=== PATIENT | female | born 1935 | race Caucasian/White ===

== ENCOUNTER 2022-02-07 14:15 | Emergency (ER) | payer MEDICARE, SELFPAY ==
--- NOTE | ~2022-02-07 | XR_ITS ---
EXAMINATION: XR CHEST CLINICAL INFORMATION: Chest pain status post fall. COMPARISON: None TECHNIQUE: Frontal view of the chest was obtained. FINDINGS: The lungs are clear. The heart and mediastinal structures are unremarkable. Mild degenerative changes are seen in the shoulders bilaterally. No overt acute osseous abnormality. XR/XR chest 1V IMPRESSION: No acute cardiopulmonary process. No overt acute traumatic injury.
--- NOTE | ~2022-02-07 | CT_ITS ---
EXAMINATION: CT HEAD W/O IV CONTRAST CT CERVICAL SPINE W/O IV CONTRAST CLINICAL INFORMATION: History of fall, head trauma, patient on Eliquis. COMPARISON: None TECHNIQUE: Head - Contiguous axial imaging of the head was performed from the skull base to the vertex without the administration of intravenous contrast, and axial images are reconstructed at 2 mm and 5 mm slice thickness. Cervical spine - A volumetric, helical CT acquisition of the cervical spine was obtained without contrast; in addition to the standard set of axial images, multiplanar reformatted images were provided in the coronal and sagittal imaging planes. This CT examination was performed using dose optimization techniques as appropriate, variously including the following: *Automated exposure control *Adjustment of mA and/or kV according to patient size (this includes techniques or standardized protocols for targeted exams where dose is matched to indication/reason for exam; i.e. extremities or head) *Use of iterative reconstruction technique DLP: 958 mGy-cm (total) FINDINGS: HEAD: There is atherosclerotic calcification of proximal intradural segments of vertebral arteries and cavernous carotid arteries. Patchy hypoattenuation within supratentorial white matter is compatible with sequela of chronic microangiopathy. The garcia-white matter differentiation is maintained. No evidence of an acute major vascular territory infarction. No intracranial hemorrhage, extra-axial fluid collection, focal mass effect or midline shift. Moderate parenchymal volume loss with commensurate prominence of ventricles and sulci. No acute findings within the posterior fossa. The calvarium is intact. The visualized paranasal sinuses and mastoid air cells are well aerated. The orbits and temporomandibular joints are unremarkable. A scalp hematoma is present in the parietal-occipital region. This hematoma measures up to at least 1 cm in thickness, approximately 7.5 cm transverse and approximately 8 cm in length. CERVICAL SPINE: The cervical spine has normal curvature. The craniocervical junction is normal. The occipital condyles, dens and atlantodental articulation are intact. Degenerative osseous spurring at the atlantodental articulation. There is calcium deposition (likely calcium pyrophosphate dihydrate crystal deposition) along the transverse ligament posterior to the dens. The vertebral body heights and alignment are maintained. No fractures in the anterior or posterior elements. No prevertebral soft tissue swelling. Multilevel facet osteoarthritis. Also, multilevel vertebral osteophyte formation and disc space narrowing of the degenerated spine. There is moderate loss of disc space and uncovertebral joint hypertrophy at C4-C5, C5-C6 and C6-C7. Mild disc degenerative change at C7-T1. Small posterior disc osteophyte complexes cause mild central canal stenosis at C4-C5 and C5-C6. Facet joint hypertrophy causes nnsh-wx-flixzkgr left-sided neural foraminal stenosis at C3-C4. At C4-C5, there is moderate right and mild left neural foraminal stenosis. Mild bilateral neural foraminal stenosis at C5-C6. At C6-C7, there is mild right and moderate left foraminal stenosis. There is a C3 bone island. No suspicious osseous lesions. No hematoma within the neck. Mild centrilobular and paraseptal emphysema at the visualized apices. No pneumothorax. Thyroid gland is unremarkable. CT/CT cervical spine wo IV con IMPRESSION: * Acute parietal-occipital scalp hematoma without calvarial fracture. * No intracranial hemorrhage or other acute intracranial pathology. * No fracture or malalignment in the degenerated cervical spine. * Pulmonary emphysema.
[2022-02-07 14:33] VITALS: BP 137/74; BP 169/84; PULSE 78; PULSE 81; RESP 20; TEMP 36.8; O2SAT 100; O2SAT 98; BMI 24.5
--- NOTE | 2022-02-07 14:45 | ED.FALL ---
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 Patient states she was caring multiple things up the stairs when tripped and fell, admits to hitting head, denies LOC. denies symptoms prior to fall including headache, lightheadedness / dizziness, CP/ SOB. Reports mom to back of head. Denies headache, neck pain, back pain, urinary incontinence/ retention, vision change/loss, fever <ISA Baker Last Filed: 02/07/22 18:28> MD complaint: fall <ISA Baker Last Filed: 02/07/22 18:28> Related Data Home Medications: Home Medications Medication Instructions Recorded Confirmed amlodipine 5 mg tablet 2 tab PO DAILY 02/07/22 02/07/22 apixaban 2.5 mg tablet (Eliquis) 1 tab PO BID 02/07/22 02/07/22 hydrochlorothiazide 25 mg tablet 1 tab PO DAILY 02/07/22 02/07/22 multivitamin 1 tab PO DAILY 02/07/22 02/07/22 rosuvastatin 40 mg tablet 1 tab PO BEDTIME 02/07/22 02/07/22 <ISA Baker Last Filed: 02/07/22 18:28> Allergies/Adverse Reactions: Allergies Allergy/AdvReac Type Severity Reaction Status Date / Time Tetracyclines Allergy Difficulty Verified 02/07/22 14:58 Breathing <ISA Baker Last Filed: 02/07/22 18:28> Review of Systems Review of Systems: Constitutional: No Fever, No Chills, No Fatigue, No Malaise ENT/Mouth: No Ear Pain, No Nasal Congestion, No sore throat, No Rhinorrhea, No Swallowing Difficulty Eyes: No Eye Pain, No Swelling, No Redness, No Vision Changes Cardiovascular: No Chest Pain, No SOB, No Edema, No Palpitations Respiratory: No Cough, No Sputum, No Dyspnea Gastrointestinal: No Nausea, No Vomiting, No Diarrhea, No Constipation, No Abdominal pain Genitourinary: No Dysuria, No Urinary Frequency, No Hematuria, No Urinary Incontinence/retention, No Urgency, No Flank Pain Musculoskeletal: No joint pain, No Myalgias, No Joint Swelling Skin: No Skin Lesions, No rash Neuro: No Weakness, No Numbness, No Paresthesias, No Loss of Consciousness, No Dizziness, + Head injury <ISA Baker - Last Filed: 02/07/22 18:28> Yes all other systems are reviewed and are negative <ISA Baker - Last Filed: 02/07/22 18:28> Constitutional: Constitutional: Reports as per HPI <ISA Baker - Last Filed: 02/07/22 18:28> Neurologic: Denies Abnormal speech present <ISA Baker - Last Filed: 02/07/22 18:28> [facility] Past Medical History Attestation statement: The following information was validated with the patient. <ISA Baker - Last Filed: 02/07/22 18:28> Social History Social History: Social History Alcohol intake: former Smoked in Last 30 Days: Yes Advance Directives: Yes Advance Directives on File: Yes Advance Directives Date on File: 02/07/22 <ISA Baker - Last Filed: 02/07/22 18:28> Physical Exam Vital Signs: Vital Signs: Last Vital Signs Temp 98.1 F 02/07/22 22:29 Pulse 70 02/07/22 22:29 Resp 19 02/07/22 22:29 BP 136/52 L 02/07/22 22:29 Pulse Ox 93 02/07/22 22:29 O2 Del Method 02/07/22 22:29 BMI result Body Mass Index 24.5 <ISA Baker - Last Filed: 02/07/22 18:28> Vital Signs: Last Vital Signs Temp 98.1 F 02/07/22 22:29 Pulse 70 02/07/22 22:29 Resp 19 02/07/22 22:29 BP 136/52 L 02/07/22 22:29 Pulse Ox 93 02/07/22 22:29 O2 Del Method 02/07/22 22:29 BMI result Body Mass Index 24.5 <Jeimy Pedro PA - Last Filed: 02/07/22 23:26> Const: General: cooperative, healthy appearing and no acute distress <ISA Baker - Last Filed: 02/07/22 18:28> Orientation/consciousness: patient oriented x3 <ISA Baker - Last Filed: 02/07/22 18:28> Limitations: no limitations <ISA Baker - Last Filed: 02/07/22 18:28> HEENT: Head: Yes normal to inspection, No Sanchez's sign, Yes hematoma ( to posterior scalp) and No raccoon eyes <ISA Baker - Last Filed: 02/07/22 18:28> Ears: hearing grossly normal bilaterally <ISA Baker - Last Filed: 02/07/22 18:28> General nose exam: Normal external nose present <ISA Baker - Last Filed: 02/07/22 18:28> Face and sinus: Yes normal facial exam <ISA Baker - Last Filed: 02/07/22 18:28> Throat: Yes posterior oropharynx normal, Yes tonsils normal and Yes uvula midline <ISA Baker - Last Filed: 02/07/22 18:28> Eyes: General: appearance normal, both eyes and all related structures <ISA Baker - Last Filed: 02/07/22 18:28> Pupils: Equal, round and reactive pupils present <ISA Baker - Last Filed: 02/07/22 18:28> EOM: EOMs intact bilaterally <ISA Baker - Last Filed: 02/07/22 18:28> Neck: Other: no midline cervical spinous tenderness <Leatha Poulmaliat PA - Last Filed: 02/07/22 18:28> Neck: Yes normal visual inspection and Yes no meningeal signs <Leatha Poulmaliat, PA - Last Filed: 02/07/22 18:28> Resp: Effort & Inspection: normal respiratory effort and no respiratory distress <Leatha Poulmaliat PA - Last Filed: 02/07/22 18:28> Auscultation: clear to auscultation bilaterally, no crackles, no rales, no rhonchi and no wheezes <Leatha Poulmaliat, PA - Last Filed: 02/07/22 18:28> Cardio: Rate: regular rate <Leatha Poulmaliat, PA - Last Filed: 02/07/22 18:28> Heart sounds: S1 normal heart sound present and S2 normal heart sound present <Leatha Poulmaliat, PA - Last Filed: 02/07/22 18:28> GI: Inspection: Yes normal to inspection <Leatha Poulmaliat, PA - Last Filed: 02/07/22 18:28> Palpation (GI): Soft to palpation, nontender, no guarding and not rigid <Leatha Poulisabel, PA - Last Filed: 02/07/22 18:28> : General: Yes no CVA tenderness <Leatha Poulmaliat, PA - Last Filed: 02/07/22 18:28> Back/Spine/Pelvis: Other: No midline thoracic/lumbar spinous tenderness/step-off or deformity <Leatha Poulmaliat, PA - Last Filed: 02/07/22 18:28> Back: no CVA tenderness <Leatha Pouliot, PA - Last Filed: 02/07/22 18:28> Skin: Rashes: no rashes <Leatha Poulmaliat, PA - Last Filed: 02/07/22 18:28> Wounds: no wounds <Leatha Poulmaliat, PA - Last Filed: 02/07/22 18:28> Neuro: General: patient oriented x3, tone normal, moves all extremities, no meningeal signs, no focal motor deficits and CN's II-XI intact bilaterally <Leatha Poulmaliat PA - Last Filed: 02/07/22 18:28> Cranial nerves: Yes CN's II-XII intact bilaterally and Yes Equal, round and reactive pupils present <ISA Baker - Last Filed: 02/07/22 18:28> Cognition (Neuro): normal cognition <ISA Baker - Last Filed: 02/07/22 18:28> Speech: No Abnormal speech present <ISA Baker - Last Filed: 02/07/22 18:28> Gait exam (Neuro): Normal gait present <ISA Baker - Last Filed: 02/07/22 18:28> Motor exam (neuro): 5/5 motor strength present throughout and no tremor noted <ISA Baker - Last Filed: 02/07/22 18:28> Coordination: udhenb-oc-ghsy test normal <ISA Baker - Last Filed: 02/07/22 18:28> Romberg Test: Negative <ISA Baker - Last Filed: 02/07/22 18:28> Extrem: General: Yes normal to inspection and Yes no pedal edema <ISA Baker - Last Filed: 02/07/22 18:28> Course Course Course Narrative: -1600-- Noted leukocytosis of 21.6 > denies recent steroid use. H&H hemoconcentrated, BUN elevated to 24 > likely from dehydration > will obtain lactic and blood cultures. No evidence of infection at this time - AST mildly elevated XR chest 1V IMPRESSION: No acute cardiopulmonary process. No overt acute traumatic injury. CT head/brain wo IV con/CT cervical spine wo IV con IMPRESSION: *? Acute parietal-occipital scalp hematoma without calvarial fracture. *? No intracranial hemorrhage or other acute intracranial pathology. *? No fracture or malalignment in the degenerated cervical spine. *? Pulmonary emphysema. ? Discussed potential admission with patient however she is not agreeable at this time. - UA with RBCs and blood, not infected -1757-- lactic acid 3.4 > empiric IV Zosyn given. > Plan to admit for further management <ISA Baker - Last Filed: 02/07/22 18:28> Reevaluation(s) Reevaluation #1: Patient initially was going to be admitted to the hospitalist for fall with leukocytosis however leukocytosis likely secondary to trauma/reactive. CBC was repeated which showed a improved white count to 14.9, lactic normalize, unable to identify source of infection. Patient's troponin did meet delta criteria patient without chest pain or shortness of breath, does not want to stay for observation, ekg non-ischemic however, I explained to her risks versus benefits, she verbalizes understanding. Hospitalist also discussed this with patient she verbalizes understanding. Admission for observation was offered to the patient and recommended however patient refused patient would like to go home. Hospitalist also evaluated patient, who states no reason for inpatient admission however she could stay overnight for observation if she wanted to however patient is adamantly refusing. At this time patient will be discharged home. Advised to return with new or worsening symptoms, educated on worrisome signs and symptoms and when to return. At this time I feel comfortable discharge <ISA Kapoor - Last Filed: 02/07/22 23:26> Time: 23:20 <ISA Kapoor - Last Filed: 02/07/22 23:26> Medications Administered Discontinued Medications Generic Name Dose Route Start Last Admin Trade Name Freq PRN Reason Stop Dose Admin Sodium Chloride 1,000 mls @ 999 mls/hr 02/07/22 16:00 02/07/22 19:09 Ns IV 02/07/22 17:00 Infused .Q1H1M RONALD Infusion Piperacillin Sod/Tazobactam 100 mls @ 200 mls/hr 02/07/22 18:03 02/07/22 19:40 Sod 4.5 gm/ Sodium Chloride IV 02/07/22 18:32 Infused ONCE ONE Infusion Lactated Ringer's 500 mls @ 999 mls/hr 02/07/22 18:15 02/07/22 20:50 Lr IV 02/07/22 18:45 Infused .Q31M RONALD Infusion Nicotine 14 mg 02/07/22 18:03 02/07/22 19:08 Nicotine 14 Mg Patch.Td24 TRANSDERMA 02/07/22 18:04 14 mg ONCE ONE Administration <ISA Baker - Last Filed: 02/07/22 18:28> Medications Administered Discontinued Medications Generic Name Dose Route Start Last Admin Trade Name Freq PRN Reason Stop Dose Admin Sodium Chloride 1,000 mls @ 999 mls/hr 02/07/22 16:00 02/07/22 19:09 Ns IV 02/07/22 17:00 Infused .Q1H1M RONALD Infusion Piperacillin Sod/Tazobactam 100 mls @ 200 mls/hr 02/07/22 18:03 02/07/22 19:40 Sod 4.5 gm/ Sodium Chloride IV 02/07/22 18:32 Infused ONCE ONE Infusion Lactated Ringer's 500 mls @ 999 mls/hr 02/07/22 18:15 02/07/22 20:50 Lr IV 02/07/22 18:45 Infused .Q31M RONALD Infusion Nicotine 14 mg 02/07/22 18:03 02/07/22 19:08 Nicotine 14 Mg Patch.Td24 TRANSDERMA 02/07/22 18:04 14 mg ONCE ONE Administration <ISA Kapoor - Last Filed: 02/07/22 23:26> Medical Decision Making Medical Decision Making MDM Narrative: 86-year-old female with a past medical history of AFib on Eliquis, HTN, HLD, diabetes, cigarette smoker, presenting to ED via EMS s/p mechanical trip and fall at home PLUG SH[employer] HAND. on exam vital signs stable, NAD, nontoxic appearing, hematoma noted to posterior scalp, no midline spinous tenderness, no red flag symptoms or focal neuro deficits. Concern for ICH vs fracture. Lora bile/infectious etiologies. Low suspicion for ACS/PE plan: EKG, head/ C-spine CT, CXR, labs, UA, orthostatics, re-evaluate <ISA Baker - Last Filed: 02/07/22 18:28> Differential Diagnoses: Differential diagnosis (as above) <ISA Baker - Last Filed: 02/07/22 18:28> Lab Attestation: I reviewed the patient's lab results. <ISA Baker - Last Filed: 02/07/22 18:28> Critical Care Time Critical Care Time Critical Care Time: No <ISA Kapoor Last Filed: 02/07/22 23:26> Discharge Plan Discharge Clinical Impression: Dehydration, Leukocytosis, Fall, Head injury, Elevated troponin <ISA Baker - Last Filed: 02/07/22 18:28> Patient Disposition: Home, Self-Care <ISA Baker - Last Filed: 02/07/22 18:28> Additional Instructions: Take your medications as prescribed. If you were prescribed antibiotics today, it is important that you take your medication to their entirety, do not skip any doses, do not finish them early. Follow-up with your primary care provider this week. Return to the emergency department with new or worsening symptoms. Such as fevers, chills, chest pain, shortness of breath, nausea, vomiting, dizziness, headache, vision changes, lethargy In case of emergency call 911 Your cardiac enzyme troponin was noted to be elevated, he remained aware of this while in the department you did not want to stay for observation. Please follow-up with your PCP within the next day or 2. Follow-up with cardiology. If you experience chest pain or shortness of breath you must return immediately. <ISA Baker - Last Filed: 02/07/22 18:28> Prescriptions: No Action multivitamin Tablet 1 tab PO DAILY amlodipine 5 mg tablet 2 tab PO DAILY hydrochlorothiazide 25 mg tablet 1 tab PO DAILY rosuvastatin 40 mg tablet 1 tab PO BEDTIME Eliquis 2.5 mg tablet 1 tab PO BID <ISA Baker - Last Filed: 02/07/22 18:28> Referrals: Miri Aldana MD [Primary Care Provider] - 2 days [facility] [Provider Group] - 1 day <ISA Baker - Last Filed: 02/07/22 18:28>
--- NOTE | 2022-02-07 15:00 | ECG_ITS ---
Test Reason : FALL Blood Pressure : / mmHG Vent. Rate : 072 BPM Atrial Rate : 000 BPM P-R Int : 000 ms QRS Dur : 088 ms QT Int : 402 ms P-R-T Axes : 000 061 -28 degrees QTc Int : 440 ms Artifact in tracing Atrial fibrillation Nonspecific ST and T wave abnormality Abnormal ECG No previous ECGs available Referred By: Leatha Pires Electronically Signed By:JAVI BUSTAMANTE
[2022-02-07 15:25] LABS: Basophils Absolute Auto 0.1 X10*3/uL (0.0-0.2); Basophils Percent Auto 0.5 % (0-2); Eosinophils Percent Auto 0.1 % (0-4); Hematocrit 50.1 % (37.0-47.0); Hemoglobin 17.1 g/dl (12.0-16.0); Imm Gran Abs Auto 0.14 X10*3/uL (0.00-0.03); Imm Gran Pct Auto 0.6 % (0.0-0.4); Lymphocytes Absolute Auto 1.6 X10*3/uL (1.2-4.9); Lymphocytes Percent Auto 7.4 % (20-40); MANUAL DIFF FLAG NO; Mean Corpuscular HGB Conc 34.1 g/dl (31.0-35.0); Mean Corpuscular Volume 93.8 fL (80.0-98.0); Mean Platelet Volume 10.5 fL (9.4-12.3); Monocytes Absolute Auto 1.2 X10*3/uL (0.1-1.2); Monocytes Percent Auto 5.5 % (2-11); Neutrophils Absolute Auto 18.5 x10*3/uL (2.0-8.3); Neutrophils Percent Auto 85.9 % (45-73); Platelet Count 354 X10*3/uL (160-400); Red Blood Count 5.34 X10*6/uL (4.20-5.50); White Blood Count 21.6 X10*3/uL (4.8-10.8)
--- OUTSIDE RECORDS SUMMARY | 2022-02-07 15:25 | XMS_ITS | Continuity of Care Document ---
:1935 Author Organization [facility] Address [address] [place] [address]- Care Team Providers Name Role Phone Miri Aldana MD Primary Care Physician Encounter [facility] Date(s): 08/20/20 - 10/11/20 [facility] [address] [place] [id number]- Attending Physician: David Odom MD Admitting Physician: David Odom MD Referring Physician: Miri Aldana MD Allergies, Adverse Reactions, Alerts Substance Reaction Severity Status tetracycline Active cephalexin diarrhea and vomiting Active Zestril Active Lipitor Active Diovan Active Immunizations Given and Recorded Vaccine Date Status Refusal Reason SARS-CoV-2 (COVID-19) mRNA BNT-162b2 vac 05/01/20 Recorde d SARS-CoV-2 (COVID-19) mRNA BNT-162b2 vac 04/11/20 Recorde d influenza virus vaccine, inactivated1 11/25/19 Recorded influenza virus vaccine, inactivated 11/25/19 Recorded influenza virus vaccine, inactivated2 11/28/17 Recorded influenza virus vaccine, inactivated3 10/23/15 Recorded influenza virus vaccine, inactivated 11/27/09 Given influenza virus vaccine, inactivated4 11/29/07 Given pneumococcal 13-valent vaccine 04/29/15 Given Influenza Vaccine (oldterm)5 10/10/14 Recorded Influenza Vaccine (oldterm)6 12/29/08 Given tetanus/diphtheria/pertussis, acel(Tdap) 04/23/14 Given Fluvirin (oldterm)7 11/19/13 Recorded Fluvirin (oldterm)8 11/28/12 Given Fluvirin (oldterm)9 11/18/11 Given Fluvirin (oldterm)10 11/17/10 Given Zostavax (oldterm) 03/14/12 Given Influenza Virus Vaccine (oldterm)11 01/18/06 Given Influenza Virus Vaccine (oldterm) 12/29/04 Given Tetanus Toxoid Vaccine (oldterm) 11/29/03 Given Pneumococcal Vaccine (oldterm) 11/28/98 Given 1Result Comment: HIGH DOSE SEE [id number] History: [id number] History: JXL4Pixwh Note: wayne leonor pyhccld8Kmpixfza History: IIO5Idloo Note: zuo4Uqrjgf Comment: [12/03/2013] [id number] Comment: [11/29/2012] [id number] Admin Note: [id number] Note: [id number] Note: GIVEN IN [facility]IC [facility] Medications calcium carbonate 600 mg oral tablet, chewable See Instructions, 0, 0, 01/22/08 19:43:29, take twice a day, Print RAMON Number, Constant Indicator Start Date: 01/22/08 Status: OrderedEliquis 5 mg oral tablet 1 tablet = 5 mg, By Mouth, 2 times a day, # 60 tablet, 11 Refills, Maintenance, 09/11/20 13:17:00 EDT, Tablet, [facility]/pharmacy #[id number], Partial fill upon patient request if the prescription is for a schedule II opioid drug., 150, cm, 09/11/20 9:36:00 EDT,... Start Date: 09/11/20 Stop Date: 09/06/21 Status: OrderedFree Style [place] Lite Test Strips Free Style [place] Lite Test Strips, See Instructions, # 100 strip(s), Refills 5, Tot. Refills 5, Maintenance, Tests TID, 12/19/09 16:56:32 Start Date: 12/19/09 Status: OrderedFree Style [place] Ultra Fine Lancets 33 guage Free Style [place] Ultra Fine Lancets 33 guage, See Instructions, # 100 each, Refills 5, Tot. Refills 5, Maintenance, Tests TID, 04/03/10 11:36:54 Start Date: 04/03/10 Status: OrderedPreserVision oral capsule 1 capsule, By Mouth, Daily, 0 Refills, Maintenance Start Date: 10/05/10 Status: OrderedVitamin D3 1000 intl units oral tablet = 1,000 International_Units, By Mouth, Daily, 0 Refills Start Date: 08/13/08 Stop Date: 09/12/08 Status: Ordered Problem List Condition Effective Dates Status Health Status Informant Carotid artery stenosis right 2005 Active 50-70%(Confirmed)1, 2 Carotid bruit present(Confirmed)3 Active Diabetes mellitus type 2(Confirmed) 12/20/07 Active Eczema(Confirmed) Active Edema(Confirmed) 08/13/08 Active History of basal cell Active carcinoma(Confirmed) Hypercholesterolemia(Confirmed) Active Hypertension(Confirmed) Active Keratoacanthoma(Confirmed) Active Macular degeneration(Confirmed) Active Osteopenia(Confirmed) Active Vitamin D deficiency(Confirmed) Active 1She sees Dr. PalaciosUcgznf3yulqg 50-70%3right Social History Social History Type Response Smoking Status 10 or more cigarettes (1/2 p ack or more)/day in last 30 days; Type: Cigarettes; Total pack years: 57; Started at age: 25; entered on: 09/28/18 Sex Female
--- OUTSIDE RECORDS SUMMARY | 2022-02-07 15:25 | XMS_ITS | Continuity of Care Document ---
:1935 Author Organization [facility] Address [address] [place] [id number]- Care Team Providers Name Role Phone Miri Aldana MD Primary Care Physician Encounter [facility] Date(s): 08/20/20 - 09/19/20 [facility] [address] [place] [id number] Allergies, Adverse Reactions, Alerts Substance Reaction Severity [...] 11/28/98 Given 1Result Comment: HIGH DOSE SEE [id number] History: [id number] History: FCG4Hhawz Note: wayne mujicarell pulliammuhpzsj2Zthwydjg History: VIF5Ardci Note: wib5Rwfbys Comment: [12/03/2013] [id number] Comment: [11/29/2012] [id number] Admin Note: [id number] Note: [id number] Note: GIVEN IN [facility] Medications calcium carbonate 600 mg oral tablet, chewable See Instructions, 0, 0, 01/22/08 19:43:29, take twice a day, Print RAMON Number, Constant Indicator Start Date: 01/22/08 Status: OrderedEliquis 5 mg oral tablet 1 tablet = 5 mg, By Mouth, 2 times a day, # 60 tablet, 11 Refills, Maintenance, 09/11/20 13:17:00 EDT, Tablet, [facility]/pharmacy #[id number], Partial fill upon patient request if the prescription is for a schedule II opioid drug., 150, cm, 09/11/20 9:36:00 EDT,... Start Date: 09/11/20 Stop Date: 09/06/21 Status: OrderedFree Style [place] Lite Test Strips Free Style [place] Lite Test Strips, See Instructions, # 100 strip(s), Refills 5, Tot. Refills 5, Maintenance, Tests TID, 12/19/09 16:56:32 Start Date: 12/19/09 Status: OrderedFree Style [place] Ultra Fine Lancets 33 guage Free Style [place] Ultra Fine Lancets 33 guage, See Instructions, [...] Vitamin D deficiency(Confirmed) Active 1She sees Dr. PalaciosYblizk7iwrmv 50-70%3right Social History Social History Type Response Smoking Status 10 or more cigarettes (1/2 p ack or more)/day in last 30 days; Type: Cigarettes; Total pack years: 57; Started at age: 25; entered on: 09/28/18 Sex Female
--- OUTSIDE RECORDS SUMMARY | 2022-02-07 15:25 | XMS_ITS | Continuity of Care Document ---
:1935 Author Organization [facility] Address [address] [place] [address]- Care Team Providers Name Role Phone Miri Aldana MD Primary Care Physician Encounter [facility] Date(s): 11/06/20 - 12/06/20 [facility] [address] [place] [address]- Allergies, Adverse Reactions, Alerts Substance Reaction Severity [...] 11/28/98 Given 1Result Comment: HIGH DOSE SEE [id number] History: [id number] History: KBK8Psvef Note: wayne pulliam5Location History: XPB9Vnkzn Note: pxc5Xuoxih Comment: [12/03/2013] [id number] Comment: [11/29/2012] [id number] Admin Note: [id number] Note: [id number] Note: GIVEN IN [facility] Medications calcium carbonate 600 mg oral tablet, chewable See Instructions, 0, 0, 01/22/08 19:43:29, take twice a day, Print RAMON Number, Constant Indicator Start Date: 01/22/08 Status: OrderedEliquis 2.5 mg oral tablet 1 tablet = 2.5 mg, By Mouth, 2 times a day, dose decrease, # 60 tablet, 5 Refills, Maintenance, 11/06/20 17:20:00 EDT, Tablet, [facility]/pharmacy #[id number], 150, cm, 09/11/20 9:36:00 EDT, Height Start Date: 11/06/20 Stop Date: 05/05/21 Status: OrderedFree Style [place] Lite Test Strips Free Style [place] Lite Test Strips, See Instructions, # 100 strip(s), Refills 5, Tot. Refills 5, Maintenance, Tests TID, 12/19/09 16:56:32 Start Date: 12/19/09 Status: OrderedFree Style [place] Ultra Fine Lancets 33 guage Free Style [place] Ultra Fine Lancets 33 guage, See Instructions, [...] Vitamin D deficiency(Confirmed) Active 1She sees Dr. PalaciosCvsljs4lzrwh 50-70%3right Social History Social History Type Response Smoking Status 10 or more cigarettes (1/2 p ack or more)/day in last 30 days; Type: Cigarettes; Total pack years: 57; Started at age: 25; entered on: 09/28/18 Sex Female
--- OUTSIDE RECORDS SUMMARY | 2022-02-07 15:25 | XMS_ITS | Continuity of Care Document ---
:1935 Author Organization [facility] Address [address] [place] [address]- Care Team Providers Name Role Phone Miri Aldana MD Primary Care Physician [place] [facility] [place]s): 08/15/20 - 10/18/20 [facility] [address] [place] [address]- Attending Physician: Miri Aldana MD Admitting Physician: Miri Aldana MD Referring Physician: Miri Aldana MD Allergies, [...] 11/28/98 Given 1Result Comment: HIGH DOSE SEE [id number] History: [id number] History: RQZ5Uojfn Note: wayne leonor txdsarh4Xiyhcgor History: PBW8Uqhex Note: buh9Prxaan Comment: [12/03/2013] [id number] Comment: [11/29/2012] [id number] Admin Note: [id number] Note: [id number] Note: GIVEN IN [facility] Medications calcium carbonate 600 mg oral tablet, chewable See Instructions, 0, 0, 01/22/08 19:43:29, take twice a day, Print RAMON Number, Constant Indicator Start Date: 01/22/08 Status: OrderedEliquis 5 mg oral tablet 1 tablet = 5 mg, By Mouth, 2 times a day, # 60 tablet, 11 Refills, Maintenance, 09/11/20 13:17:00 EDT, Tablet, [facility]/pharmacy #[id number], Partial fill upon patient request if the prescription is for a schedule II opioid drug., 150, cm, 09/11/20 9:36:00 EDT,... Start Date: 09/11/20 Stop Date: 09/06/21 Status: OrderedFree Style [place] Lite Test Strips Free Style [place] Lite Test Strips, See Instructions, # 100 strip(s), Refills 5, Tot. Refills 5, Maintenance, Tests TID, 12/19/09 16:56:32 Start Date: 12/19/09 Status: OrderedFree Style [place] Ultra Fine Lancets 33 guage Free Style [place] Ultra Fine Lancets 33 guage, See Instructions, [...] Vitamin D deficiency(Confirmed) Active 1She sees Dr. PalaciosLlzral4uphxb 50-70%3right Social History Social History Type Response Smoking Status 10 or more cigarettes (1/2 p ack or more)/day in last 30 days; Type: Cigarettes; Total pack years: 57; Started at age: 25; entered on: 09/28/18 Sex Female
--- OUTSIDE RECORDS SUMMARY | 2022-02-07 15:25 | XMS_ITS | Continuity of Care Document ---
:1935 Author Organization [facility] Address [address] [place] [address]- Care Team Providers Name Role Phone Miri Aldana MD Primary Care Physician Encounter [facility] Date(s): 08/19/20 - 09/18/20 [facility] [address] [place] [address] Allergies, Adverse Reactions, Alerts Substance Reaction Severity [...] 11/28/98 Given 1Result Comment: HIGH DOSE SEE [id number] History: [id number] History: BNI8Eiqom Note: wayne mujicarell pulliamurzdugp6Opxpbwsc History: JNU6Ueugx Note: nfe5Yozqef Comment: [12/03/2013] [id number] Comment: [11/29/2012] [email or web address] Admin Note: [id number] Note: [id number] Note: GIVEN IN CLINIC [facility] Medications calcium carbonate 600 mg oral tablet, chewable See Instructions, 0, 0, 01/22/08 19:43:29, take twice a day, Print RAMON Number, Constant Indicator Start Date: 01/22/08 Status: OrderedEliquis 5 mg oral tablet 1 tablet = 5 mg, By Mouth, 2 times a day, # 60 tablet, 11 Refills, Maintenance, 09/11/20 13:17:00 EDT, Tablet, [facility]/pharmacy #[id number], Partial fill upon patient request if the prescription is for a schedule II opioid drug., 150, cm, 09/11/20 9:36:00 EDT,... Start Date: 09/11/20 Stop Date: 09/06/21 Status: OrderedFree Style [place] Lite Test Strips Free Style Stuart Lite Test Strips, See Instructions, # 100 strip(s), Refills 5, Tot. Refills 5, Maintenance, Tests TID, 12/19/09 16:56:32 Start Date: 12/19/09 Status: OrderedFree Style [place] Ultra Fine Lancets 33 guage Free Style [place] Ultra Fine Lancets 33 guage, See Instructions, [...] Vitamin D deficiency(Confirmed) Active 1She sees Dr. PalaciosDsrqyt0cjjyj 50-70%3right Social History Social History Type Response Smoking Status 10 or more cigarettes (1/2 p ack or more)/day in last 30 days; Type: Cigarettes; Total pack years: 57; Started at age: 25; entered on: 09/28/18 Sex Female
--- OUTSIDE RECORDS SUMMARY | 2022-02-07 15:25 | XMS_ITS | Continuity of Care Document ---
:1935 Author Organization [facility] Address [address] [place] [address]- Care Team Providers Name Role Phone Miri Aldana MD Primary Care Physician [place] [facility] [place]20 [facility] [address] [place] [address]- Attending Physician: Salvatore Arambula Admitting Physician: Salvatore Arambula Referring Physician: AdmtrSalvatore Allergies, Adverse Reactions, Alerts Substance Reaction Severity [...] 11/28/98 Given 1Result Comment: HIGH DOSE SEE [id number] History: [id number] History: QPC5Gtqjc Note: wayne mujicarell kttutkn4Jubwayxy History: YAM1Goezu Note: nwr5Siwylx Comment: [12/03/2013] [id number] Comment: [11/29/2012] [email or web address] Admin Note: [id number] Note: [id number] Note: GIVEN IN CLINIC [facility] Medications calcium carbonate 600 mg oral tablet, chewable See Instructions, 0, 0, 01/22/08 19:43:29, take twice a day, Print RAMON Number, Constant Indicator Start Date: 01/22/08 Status: OrderedEliquis 5 mg oral tablet 1 tablet = 5 mg, By Mouth, 2 times a day, # 60 tablet, 11 Refills, Maintenance, 09/11/20 13:17:00 EDT, Tablet, [facility]/pharmacy #[id number], Partial fill upon patient request if the prescription is for a schedule II opioid drug., 150, cm, 09/11/20 9:36:00 EDT,... Start Date: 09/11/20 Stop Date: 09/06/21 Status: OrderedFree Style [place] Lite Test Strips Free Style [place] Lite Test Strips, See Instructions, # 100 strip(s), Refills 5, Tot. Refills 5, Maintenance, Tests TID, 12/19/09 16:56:32 Start Date: 12/19/09 Status: OrderedFree Style [place] Ultra Fine Lancets 33 guage Free Style [place] Ultra Fine Lancets 33 guage, See Instructions, [...] Vitamin D deficiency(Confirmed) Active 1She sees Dr. PalaciosKfhzzq1edmlo 50-70%3right Social History Social History Type Response Smoking Status 10 or more cigarettes (1/2 p ack or more)/day in last 30 days; Type: Cigarettes; Total pack years: 57; Started at age: 25; entered on: 09/28/18 Sex Female
--- OUTSIDE RECORDS SUMMARY | 2022-02-07 15:26 | XMS_ITS | Continuity of Care Document ---
:1935 Author Organization [facility] Address [address] [place] [address]- Care Team Providers Name Role Phone Miri Aldana MD Primary Care Physician [place] [facility] [place] [facility] [address] [place] [phone]- Allergies, Adverse Reactions, Alerts Substance Reaction Severity [...] 11/28/98 Given 1Result Comment: HIGH DOSE SEE [id number] History: ENRHQNTWK6Khwjlwkb History: JSX1Fwhvn Note: wayne pulliam5Location History: VEM4Feupf Note: qla5Kgcbjh Comment: [12/03/2013] [id number] Comment: [11/29/2012] [email or web address] Admin Note: [id number] Note: [id number] Note: GIVEN IN CLINIC [facility] Medications calcium carbonate 600 mg oral tablet, chewable See Instructions, 0, 0, 01/22/08 19:43:29, take twice a day, Print RAMON Number, Constant Indicator Start Date: 01/22/08 Status: OrderedEliquis 2.5 mg oral tablet 1 tablet = 2.5 mg, By Mouth, 2 times a day, dose decrease, # 60 tablet, 5 Refills, Maintenance, 11/06/20 17:20:00 EDT, Tablet, [facility]/pharmacy #[id number], 150, cm, 09/11/20 9:36:00 EDT, Height Start Date: 11/06/20 Stop Date: 05/05/21 Status: OrderedFree Style [place] Lite Test Strips Free Style [place] Lite Test Strips, See Instructions, # 100 strip(s), Refills 5, Tot. Refills 5, Maintenance, Tests TID, 12/19/09 16:56:32 Start Date: 12/19/09 Status: OrderedFree Style [place] Ultra Fine Lancets 33 guage Free Style [place] Ultra Fine Lancets 33 guage, See Instructions, [...] Vitamin D deficiency(Confirmed) Active 1She sees Dr. PalaciosFoyopc1ijeve 50-70%3right Social History Social History Type Response Smoking Status 10 or more cigarettes (1/2 p ack or more)/day in last 30 days; Type: Cigarettes; Total pack years: 57; Started at age: 25; entered on: 09/28/18 Sex Female
--- OUTSIDE RECORDS SUMMARY | 2022-02-07 15:26 | XMS_ITS | Continuity of Care Document ---
:1935 Author Organization [facility] Address [address] [place] [address]- Care Team Providers Name Role Phone Miri Aldana MD Primary Care Physician Encounter [facility] [place]s): 09/11/20 - 10/11/20 [facility] [address] [place] [phone]- Attending Physician: AdmtrSalvatore Admitting Physician: Admtr, Ar8 Referring Physician: Admtr, Ar8 Allergies, Adverse Reactions, Alerts Substance Reaction Severity [...] 11/28/98 Given 1Result Comment: HIGH DOSE SEE OAZG4Nalcswvs History: YVALGWFMX5Zunolgsj History: ASL3Mfnay Note: wayne leonor uhfuxpx4Mjvhsdgd History: ZWI3Bgesy Note: dvf2Zsvbpy Comment: [12/03/2013] [id number] Comment: [11/29/2012] [email or web address] Admin Note: [id number] Note: GVMLRMEJX76Fylwl Note: GIVEN IN CLINIC [facility] Medications calcium carbonate 600 mg oral tablet, chewable See Instructions, 0, 0, 01/22/08 19:43:29, take twice a day, Print RAMON Number, Constant Indicator Start Date: 01/22/08 Status: OrderedEliquis 5 mg oral tablet 1 tablet = 5 mg, By Mouth, 2 times a day, # 60 tablet, 11 Refills, Maintenance, 09/11/20 13:17:00 EDT, Tablet, [facility]/pharmacy #[id number], Partial fill upon patient request if the prescription is for a schedule II opioid drug., 150, cm, 09/11/20 9:36:00 EDT,... Start Date: 09/11/20 Stop Date: 09/06/21 Status: OrderedFree Style [place] Lite Test Strips Free Style [place] Lite Test Strips, See Instructions, # 100 strip(s), Refills 5, Tot. Refills 5, Maintenance, Tests TID, 12/19/09 16:56:32 Start Date: 12/19/09 Status: OrderedFree Style [place] Ultra Fine Lancets 33 guage Free Style [place] Ultra Fine Lancets 33 guage, See Instructions, [...] Vitamin D deficiency(Confirmed) Active 1She sees Dr. PalaciosNzkzep7rqupd 50-70%3right Social History Social History Type Response Smoking Status 10 or more cigarettes (1/2 p ack or more)/day in last 30 days; Type: Cigarettes; Total pack years: 57; Started at age: 25; entered on: 09/28/18 Sex Female
--- OUTSIDE RECORDS SUMMARY | 2022-02-07 15:26 | XMS_ITS | Continuity of Care Document ---
:1935 Author Organization [facility] Address [address] [place] [address]- Care Team Providers Name Role Phone Miri Aldana MD Primary Care Physician [place] [facility] [place] [facility] [address] [place] [phone]- Allergies, Adverse Reactions, Alerts Substance Reaction Severity [...] 11/28/98 Given 1Result Comment: HIGH DOSE SEE CKHI7Ahbsknch History: AAGSNXFQJ2Buoagbol History: SSS5Lbgaw Note: wayne pulliam5Location History: MVO7Rrcrl Note: mwz5Lgylip Comment: [12/03/2013] [id number] Comment: [11/29/2012] [email or web address] Admin Note: [id number] Note: XHVACLADW99Goegy Note: GIVEN IN CLINIC [facility] Medications Eliquis 2.5 mg oral tablet 1 tablet, By Mouth, 2 times a day, for 90 days, ., # 180 tablet, 3 Refills, Physician Stop 09/03/22 13:21:00 EDT, 09/08/21 13:21:00 EDT, [facility]/pharmacy #[id number], 150, cm, 01/07/21 11:14:00 EST, Height Start Date: 09/08/21 Stop Date: 09/03/22 Status: OrderedPreserVision oral capsule 1 capsule, By Mouth, Daily, 0 Refills, Maintenance Start Date: 10/05/10 Status: OrderedVitamin D3 1000 intl units oral tablet = 1,000 International_Units, By Mouth, Daily, 0 Refills Start Date: 08/13/08 Stop Date: 09/12/08 Status: Ordered Problem List Condition Effective Dates Status Health Status Informant Carotid artery stenosis right 2005 Active 50-70%(Confirmed)1, 2 Carotid bruit present(Confirmed)3 Active Atrial fibrillation, Active chronic(Confirmed) CKD stage 3 due to type 2 diabetes Active mellitus(Confirmed) Diabetes mellitus type 2(Confirmed) 12/20/07 Active Eczema(Confirmed) Active Edema(Confirmed) 08/13/08 Active History of basal cell Active carcinoma(Confirmed) Hypercholesterolemia(Confirmed) Active Hypertension(Confirmed) Active Keratoacanthoma(Confirmed) Active Macular degeneration(Confirmed) Active Osteopenia(Confirmed) Active Vitamin D deficiency(Confirmed) Active 1She sees Dr. PalaciosRomzmn7btauk 50-70%3right Social History Social History Type Response Smoking Status 10 or more cigarettes (1/2 p ack or more)/day in last 30 days; Type: Cigarettes; Total pack years: 57; Started at age: 25; entered on: 09/28/18 Sex Female
[2022-02-07 15:30] LABS: INTERNATIONAL NORM RATIO 1.1 (0.9-1.1); Prothrombin Time 13.1 SEC (10.0-13.1)
[2022-02-07 15:44] LABS: Alanine Aminotransferase 31 U/L (0-31); Albumin Level 4.1 g/dL (3.5-5.0); Alkaline Phosphatase 113 U/L (39-117); Anion Gap 18 (12-20); Aspartate Amino Transferase 35 U/L (5-31); Bilirubin Direct 0.3 mg/dL (0.0-0.5); Bilirubin Total 0.7 mg/dL (0.0-1.0); Blood Urea Nitrogen 24 mg/dL (9-16); Calcium 10.5 mg/dL (8.4-10.2); Carbon Dioxide 26 mmol/L (22-29); Chloride 96 mmol/L (96-108); Estimated Glomerular Filt Rate 36; Glucose Random 207 mg/dL (60-115); Magnesium 1.9 mg/dL (1.6-2.6); Potassium 3.4 mmol/L (3.3-5.1); Sodium 137 mmol/L (135-145); Total Protein 7.4 g/dL (6.5-8.0)
[2022-02-07 16:04] LABS: Troponin-I High Sensitivity 11.2 ng/L (<3.5-17.0)
[2022-02-07] MEDS: 0.9 % Sodium Chloride 1,000 ML 999 ML IV (17:18)
[2022-02-07 17:30] LABS: Appearance Urine Cloudy; Color Urine Yellow; Glucose Urine UA Negative (Negative); Leukocyte Esterase Urine Trace (Negative); Nitrite Urine Negative (Negative); PH 5.5 (5.0-9.0); Specific Gravity - Urine 1.015 (1.005-1.025); UMIC TRIGGER UACC YES; Urine Blood Moderate (2+) (Negative); Urine Ketones Negative (Negative); Urine Protein 100 (2+) mg/dL (Neg-Trace)
[2022-02-07 17:42] LABS: Bacteria Urine None Seen (None Seen); WBC Urine 0-5 /HPF (0-5)
[2022-02-07 17:57] LABS: Lactic Acid 3.4 mmol/L (0.5-2.0)
--- NOTE | 2022-02-07 18:19 | PHA.MEDREC ---
Pharmacy Consult ? Medication Reconciliation Pharmacy has completed the medication reconciliation.
[2022-02-07] MEDS: Piperacillin Sodium/Tazobactam 4.5 GM in 0.9 % Sodium Chloride 100 ML IV (19:06)
[2022-02-07] MEDS: Nicotine 14 MG PATCH.TD24 TRANSDERMA (19:08)
[2022-02-07 19:41] LABS: Reflex Lactate? Lactic Acid Added
[2022-02-07] MEDS: Lactated Ringers 500 ML 999 ML IV (19:45)
[2022-02-07 20:23] LABS: ~Lactic Acid-LAB USE ONLY 1.6 mmol/L (0.5-2.0)
[2022-02-07 20:32] LABS: Influenza A PCR NEGATIVE (Negative); Influenza B PCR NEGATIVE (Negative); Resp Syncy Virus RNA Qual PCR NEGATIVE (Negative); SARS COV2 PCR INHOUSE NEGATIVE (Negative)
[2022-02-07 20:32] LABS: Troponin-I High Sensitivity 20.5 ng/L (<3.5-17.0)
[2022-02-07 20:51] LABS: Anion Gap 18 (12-20); Blood Urea Nitrogen 22 mg/dL (9-16); Calcium 9.3 mg/dL (8.4-10.2); Carbon Dioxide 22 mmol/L (22-29); Chloride 100 mmol/L (96-108); Creatinine Clr Calc Pharmacy 29.5; Estimated Glomerular Filt Rate 46; Glucose Random 185 mg/dL (60-115); Potassium 3.8 mmol/L (3.3-5.1); Sodium 136 mmol/L (135-145)
[2022-02-07 21:18] VITALS: BP 135/44; PULSE 75; RESP 22; TEMP 36.8; O2SAT 96
[2022-02-07 22:29] VITALS: BP 136/52; PULSE 70; RESP 19; TEMP 36.7; O2SAT 93
[2022-02-07 22:47] LABS: MANUAL DIFF FLAG NO
[2022-02-07 22:51] LABS: Basophils Percent Auto 0.3 % (0-2); Eosinophils Percent Auto 0.1 % (0-4); Hematocrit 45.4 % (37.0-47.0); Hemoglobin 15.7 g/dl (12.0-16.0); Imm Gran Abs Auto 0.07 X10*3/uL (0.00-0.03); Imm Gran Pct Auto 0.5 % (0.0-0.4); Lymphocytes Absolute Auto 1.3 X10*3/uL (1.2-4.9); Lymphocytes Percent Auto 8.5 % (20-40); Mean Corpuscular HGB Conc 34.6 g/dl (31.0-35.0); Mean Corpuscular Hemoglobin 32.4 pg (27.0-33.0); Mean Corpuscular Volume 93.8 fL (80.0-98.0); Mean Platelet Volume 10.5 fL (9.4-12.3); Monocytes Absolute Auto 1.2 X10*3/uL (0.1-1.2); Monocytes Percent Auto 7.8 % (2-11); Neutrophils Absolute Auto 12.4 x10*3/uL (2.0-8.3); Neutrophils Percent Auto 82.8 % (45-73); Platelet Count 290 X10*3/uL (160-400); Red Blood Count 4.84 X10*6/uL (4.20-5.50); Red Cell Distribution Width 12.9 % (11.0-16.0); White Blood Count 14.9 X10*3/uL (4.8-10.8)
[2022-02-08 00:26] VITALS: BP 139/60; PULSE 71; RESP 14; TEMP 36.8; O2SAT 96
== END 2022-02-08 00:45 | disposition home or self-care (01) ==
PROVIDERS: Physician Assistant; Emergency Provider Internal Medicine; PCP Internal Medicine
DX: I48.91 Unspecified atrial fibrillation (principal); E86.0 Dehydration; R51.9 Headache, unspecified; R77.8 Other specified abnormalities of plasma proteins; M54.2 Cervicalgia; Z20.822 Contact with and (suspected) exposure to COVID-19; F17.210 Nicotine dependence, cigarettes, uncomplicated; Z71.6 Tobacco abuse counseling; Z79.899 Other long term (current) drug therapy
CPT/HCPCS: 0241U; 36415; 70450; 71045; 72125; 80048; 80076; 81001; 82550; 83605; 83735; 84484; 85025; 85610; 87040; 93005; 96361; 96365; 99284; 99285; J2543

== ENCOUNTER 2022-12-05 06:33 | Inpatient (IN) | payer MEDICARE, SELFPAY ==
[2022-12-05 06:38] VITALS: BP 132/63; BP 138/88; PULSE 70; PULSE 81; RESP 17; TEMP 36.4; O2SAT 97; O2SAT 98; BMI 22.0
--- NOTE | 2022-12-05 06:55 | PC.NURSE ---
Pt daughter at bedside relates pt has had several falls in the past year, states pt is becoming more frail and losing weight and concerned about pt returning home. Would like pt to be placed in facility if medical workup is clear.
--- NOTE | 2022-12-05 07:04 | MHC.EDTECH ---
Patient came in by ambulance, vitals were taken and patient was placed on the bass string winder and EKG was completed. Unable to change patient at this time due to being in a C-Collar, upcoming shift is aware. family is at bedside
--- NOTE | 2022-12-05 07:15 | ED_ITS ---
HPI - Fall General Chief Complaint: Fall Stated Complaint: fall Time Seen by Provider: 12/05/22 06:49 Source: patient, family and EMS Mode of arrival: EMS Limitations: other (History of dementia) History of Present Illness HPI Narrative: Patient is an 87-year-old female who presents emergency department via EMS for evaluation after an unwitnessed fall. Patient was able to push her Life Alert button today and she presents emergency department and her daughter is present at bedside. Patient was found to be lying on the ground in the hallway. When asked it is unclear exactly what prompted this fall. She endorses pain to the right elbow. She was noted to have a skin tear to the right forearm. Per her daughter's account when EMS attempted to get her up from the floor she noticed has significant mood [place] nonweightbearing on her right lower extremity though she denies pain at this time. Typically she is ambulatory with the use of a quad cane and/or walker. She does live home alone. Per daughter Yelena, patient has had increased falls recently, she had 2 falls last week neither of which she had evaluation for afterwards. She has been increasingly more confused from her baseline, having a poor appetite. Her daughter facilitates in-home care through private pay, [facility], and [place] care. She has been considering placement to a [facility] facility. Related Data Home Medications Medication Instructions Recorded Confirmed amlodipine 5 mg tablet 1 tab PO DAILY 02/07/22 12/05/22 apixaban 2.5 mg tablet (Eliquis) 1 tab PO BID 02/07/22 12/05/22 hydrochlorothiazide 25 mg tablet 1 tab PO DAILY 02/07/22 12/05/22 rosuvastatin 40 mg tablet 1 tab PO BEDTIME 02/07/22 12/05/22 albuterol sulfate 90 mcg/actuation 2 puff inhalation Q6H PRN wheezing 12/05/22 12/05/22 aerosol inhaler Allergies Allergy/AdvReac Type Severity Reaction Status Date / Time cephalexin [From Keflex] Allergy Unknown Verified 12/05/22 06:38 Tetracyclines Allergy Difficulty Verified 02/07/22 14:58 Breathing Review of Systems 2 Review of Systems: Yes all other systems are reviewed and are negative PMFSH Past Medical History Attestation statement: The following information was validated with the patient. Source: old records reviewed Medical History Dementia Asthma Hypertension Hyperlipidemia Paroxysmal atrial fibrillation Social History Social History Unable to assess alcohol history related to: Unknown Alcohol intake: former Patient Tobacco Use Status: Never used Tobacco Smoked in Last 30 Days: Yes Use of substances other than those prescribed or required for medical reasons: No Advance Directives: Yes Advance Directives on File: Yes Advance Directives Date on File: 02/07/22 Nutrition Risks: No Nutritional Risk Physical Exam 2 Vital Signs: Vital Signs: Last Vital Signs Temp 97.6 F 12/05/22 06:38 Pulse 61 12/05/22 14:31 Resp 12 12/05/22 14:31 BP 134/57 L 12/05/22 14:31 Pulse Ox 94 12/05/22 14:31 O2 Del Method Room Air 12/05/22 14:31 BMI result Body Mass Index 22.0 Appearance: Alert.?Oriented to person, place and time. No acute distress.?Normal affect. Head: Normocephalic, right parietal hematoma Eyes: Pupils equal, round and reactive to light.? EOMI. No raccoon eyes. ENT: Pharynx normal.??Dentition normal. No Sanchez sign. Neck: Normal inspection.? Neck supple.??No midline cervical spine tenderness, step-offs, deformities. CVS: Heart sounds normal. Normal heart rate and rhythm.? Pulses normal.?? Respiratory: No respiratory distress.? Lung sounds clear to auscultation bilaterally?? Abdomen: Soft and non-tender. Normoactive bowel sounds. Back: No midline thoracic or lumbar spine tenderness, step-offs, deformities. Skin: Skin warm and dry.? Normal skin color.? Right forearm a 4 cm skin tear Extremities: No lower extremity edema.? Neuro: Moves all extremities spontaneously. Sensation intact bilaterally. CN II- XII intact. No focal neuro deficits. Course Reevaluation(s) Reevaluation #1: She is noted to have leukocytosis of 14.2 with left shift, not meeting SIRS criteria, U/A pending at this time. BMP revealing metabolic acidosis, KASSANDRA BUN 48 creatinine of 3.83, Hypokalemia of 2.2, replaced with 40 mEq orally, 40 IV - likely multifctoral, dehydration, use of HCTZ. At this time will obtain CT of the abdomen and pelvis to exclude obstruction. Urinalysis with microscopic hematuria, 2+ leukocyte esterase and 3+ urine bacteria although there is >20 squamous epithelial cells, concern for acute urinary tract infection vs. urogenital contamination, in the setting of KASSANDRA will treat with Zosyn at this time. EKG revealing atrial flutter, controlled ventricular rate, nonspecific ST abnormality. CT of the head with no acute intracranial findings, right parietal scalp hematoma present, CT of the cervical spine without evidence of acute fracture or traumatic subluxation. 2 cm mass within the left parotid tail. XR of the right elbow revealed no evidence of fracture dislocation. XR of the hip with osteopenia, no visible fracture dislocation. Reevaluation #2: CT AP reveals mild constipation, R inguinal hernia, large left renal cyst with rim calcification, no visible calculi or hydronephrosis. Reviewed the findings with christiano and daughter. Spoke with hospitalist service, accepted for admission to medicine; Susan Ku for KASSANDRA on CKD Time: 13:29 Medications Administered Generic Name Dose Route Start Last Admin Trade Name Freq PRN Reason Stop Dose Admin Sodium Chloride 1,000 mls @ 100 mls/hr 12/05/22 13:45 12/05/22 14:50 Ns IVCONT 100 mls/hr .Q10H RONALD Administration Nicotine 21 mg 12/05/22 14:30 12/05/22 14:51 Nicotine 21 Mg Patch.[id number] TRANSDERMA 21 mg DAILY RONALD Administration Sodium Chloride 3 ml 12/05/22 16:00 12/05/22 14:50 0.9 % Sodium Chloride Flush 3 Ml Syringe IVFLUSH 3 ml QSHIFT RONALD Administration Discontinued Medications Generic Name Dose Route Start Last Admin Trade Name Freq PRN Reason Stop Dose Admin Sodium Chloride 1,000 mls @ 999 mls/hr 12/05/22 08:00 12/05/22 09:44 Ns IV 12/05/22 09:00 Infused .Q1H1M RONALD Infusion Potassium Chloride 10 meq in 100 mls @ 100 mls/hr 12/05/22 08:00 12/05/22 14:38 Potassium Chloride/H20 IV 12/05/22 11:59 Infused Q1H RONALD Infusion Piperacillin Sod/Tazobactam 50 mls @ 100 mls/hr 12/05/22 11:52 12/05/22 14:38 Sod 3.375 gm/ Sodium Chloride IV 12/05/22 12:21 Infused ONCE ONE Infusion Potassium Chloride 40 meq 12/05/22 07:58 12/05/22 08:25 Potassium Chloride Packet 20 Meq Packet PO 12/05/22 07:59 40 meq ONCE ONE Administration Medical Decision Making Medical Decision Making [facility] Narrative: Patient is an 87-year-old female with past medical history of atrial fibrillation on Eliquis, hypertension, hyperlipidemia, diabetes, tobacco use disorder, dementia presenting to emergency department for evaluation after an unwitnessed fall at home. She presents via EMS and her daughters present at bedside who is her primary internist medical doctor md. When asked the patient is unable to endorse as to why she fell. Daughter states she has been having increasing falls at home, previously has not remembered to use her Life Alert button but today she did. Patient's only complaints include right elbow pain upon PROM, skin tears present to the forearm which was cleansed with normal saline and repaired with Steri-Strips most to the edge was able to be approximated and clean nonstick dressing was applied. Extremities are neurovascularly intact distally. Will obtain CBC to evaluate for leukocytosis/ anemia, CMP to evaluate for abnormal electrolytes /abnormal renal function/ abnormal hepatic function, EKG, and Urinalysis. Plan to obtain XR of the right elbow and right hip. Discussed plan of care with daughter at length, if evaluations today reveal no indication for hospital admission daughter would like patient evaluated by Physical therapy/case management for potential STR vs. LTC. Differential Diagnosis Differential Diagnoses: The differential diagnosis associated with the presentation includes (Mechanical fall, deconditioning, dementia, arrhythmia, urinary tract infection) Admission/Observation Consideration of admission/observation: Escalation of care including admission/observation considered (See narrative above for further detail) Consult Healthcare Provider Management of the patient was discussed with: Hospitalist (Admission as per course narrative) Lab Data [facility] Lab Attestation statement: I reviewed the patient's lab results. (As per course narrative) 12/05/22 07:08 12/05/22 18:36 Labs: Lab Results 12/05/22 12/05/22 Range/Units 07:08 11:15 WBC 14.2 H (4.8-10.8) X10*3/uL RBC 5.21 (4.20-5.50) X10*6/uL Hgb 15.7 (12.0-16.0) g/dl Hct 45.7 (37.0-47.0) % MCV 87.7 (80.0-98.0) fL MCH 30.1 (27.0-33.0) pg MCHC 34.4 (31.0-35.0) g/dl RDW 14.2 (11.0-16.0) % Plt Count 382 D (160-400) X10*3/uL MPV 9.9 (9.4-12.3) fL Immature Gran % (Auto) 0.6 H (0.0-0.4) % Neut % (Auto) 85.4 H (45-73) % Lymph % (Auto) 7.1 L (20-40) % [place] % (Auto) 6.4 (2-11) % Eos % (Auto) 0.1 (0-4) % Baso % (Auto) 0.4 (0-2) % Lymph # (Auto) 1.0 L (1.2-4.9) X10*3/uL [place] # (Auto) 0.9 (0.1-1.2) X10*3/uL Eos # (Auto) 0.0 (0.0-0.4) X10*3/uL Baso # (Auto) 0.1 (0.0-0.2) X10*3/uL Abs Immat Gran (auto) 0.08 H (0.00-0.03) X10*3/uL Absolute Neuts (auto) 12.1 H (2.0-8.3) x10*3/uL Absolute Nucleated RBC 0.000 (0.0-0.012) X10*3/uL Nucleated RBC % (auto) 0.0 (0.0-0.2) /100WBC Sodium 134 L (135-145) mmol/L Potassium 2.2 L* D (3.3-5.1) mmol/L Chloride 85 L (96-108) mmol/L Carbon Dioxide 29 (22-29) mmol/L Anion Gap 22 H (12-20) BUN 48 H (9-16) mg/dL Creatinine 3.83 H (0.5-1.4) mg/dL Estim Creat Clear Calc 7.1 Estimated GFR 11 Random Glucose 199 H (60-115) mg/dL Calcium 10.2 D (8.4-10.2) mg/dL Magnesium 1.9 (1.6-2.6) mg/dL Total Bilirubin 0.8 (0.0-1.0) mg/dL AST 64 H (5-31) U/L ALT 45 H (0-31) U/L Alkaline Phosphatase 120 H (39-117) U/L Total Creatine Kinase 555 H (26-140) U/L Total Protein 7.3 (6.5-8.0) g/dL Albumin 3.6 (3.5-5.0) g/dL Urine Color Yellow Urine Appearance Cloudy Urine pH 5.5 (5.0-9.0) Ur Specific [place] 1.010 (1.005-1.025) Urine Protein 100 (2+) H (Neg-Trace) mg/dL Urine Glucose (UA) Negative (Negative) mg/dL Urine Ketones Negative (Negative) mg/dL Urine Blood Large (3+) H (Negative) Urine Nitrite Negative (Negative) Ur Leukocyte Esterase Moderate (2+) H (Negative) Urine RBC 3-5 H (0-2) /HPF Urine WBC 11-20 (0-5) /HPF Ur Squamous Epith Cells >20 (0-2) /HPF Urine Bacteria 3+ (None Seen) Hyaline Casts 3-5 (0-2) /LPF Ur Random Sodium 49.0 mmol/L Urine Creatinine 45.00 mg/dL COVID-19 (REMI) Negative (Negative) COVID-19 Clin Com See Note Influenza Type A (RAJANI) Negative (Negative) Influenza Type B (RAJANI) Negative (Negative) Influenza A & B Note See Note Independent Interpretation I performed an independent interpretation of an: Plain X-Ray (I personally interpreted XR imaging of the elbow and had been agree with radiologist impression.) Radiology Impression Discussion of test interpretation with radiology: I have reviewed the radiologist's reading. Radiologist Impression: CT/CT head/brain wo IV con IMPRESSION: - No acute intracranial findings. Right parietal and right frontal scalp hematoma. - No acute osseous findings within the cervical spine. Multilevel cervical spondylosis. - There is a partially imaged 2 cm well marginated mass within the left parotid tail for which ENT consultation is advised. XR/XR elbow RT 2V IMPRESSION: 1. Unremarkable right elbow exam. XR/XR hip RT min 2V IMPRESSION: 1. Unremarkable AP pelvis and right hip exam. There is mild osteopenia. No visible acute fracture or dislocation seen. CT/CT abdomen pelvis wo IV con IMPRESSION: Mild constipation without obstruction. Right inguinal hernia containing a loop of small bowel. Bilateral large left renal cyst large left renal cyst with with rim calcification of the wall. Bosniak type II. No radiopaque renal calculi or hydronephrosis Benign bilateral adrenal nodules left greater than right. Cholecystectomy. Independent Historian Clinical information obtained from an independent historian. History obtained from or confirmed by: Other (Daughter who confirms history) External Record Review External record reviewed: Outpatient record and Prior outpatient labs Discharge Plan Discharge Clinical Impression: Acute kidney injury, Hypokalemia, Recurrent falls Patient Disposition: Admitted As Inpatient
--- NOTE | 2022-12-05 07:38 | PC.NURSE ---
Resumed care of patient, wound care provided with provider to Right Elbow skin tear, C-Collar remains in place until cleared. Pt able to answer some questions, but daughter is primary provider. Concerns vocalized of patient being safe at home. Awaiting lab results, pt is able to know when she needs to urinate, daughter aware we need to collect urine to assess for UTI and will alert staff next time she needs to go.
--- NOTE | 2022-12-05 08:18 | PC.NURSE ---
IV access maintained, Pt currently in CT scan.
[2022-12-05 08:32] VITALS: BP 136/61; PULSE 66; RESP 18; O2SAT 97
[2022-12-05 11:12] VITALS: BP 119/58; PULSE 60; RESP 17; O2SAT 97
--- NOTE | 2022-12-05 11:50 | PHA.MEDREC ---
Pharmacy Consult ? Medication Reconciliation Pharmacy has completed the medication reconciliation. Patient's daughter Maribell ([phone]) knows medications of patient. Patient poor historian.
--- NOTE | 2022-12-05 13:44 | PM.IMHP ---
History of Present Illness Date of Service: 12/05/22 Attending physician on admission: Hailee Calhoun Chief Complaint: fall 87-year-old female with history of paroxysmal atrial fibrillation anticoagulated with Eliquis, hypertension, hyperlipidemia, asthma, and unspecified dementia who is a current 1 pack per day smoker presented to the ED via EMS following a unwitnessed mechanical fall. There was head strike but no loss of consciousness per patient. The patient is not the best historian secondary to her dementia but she denies any lightheadedness, palpitations, shortness of breath, chest pain prior to the fall. Her daughter who is at bedside states that she has had 3 falls in the last 2 weeks. Her daughter reports that she has not been eating much and is not drinking as much as she should. The patient currently lives at home with daytime care provided by family and other staff but is alone at night. Her daughter is considering long-term care. The patient does ambulate with a cane or a walker. On arrival, vitals stable. There is a leukocytosis of 14.2, baseline around 1.13. BUN 48. Sodium 134, potassium 2.2, chloride 85. AST 64, ALT 45, alkaline phosphatase 120, total CK 555. Urinalysis significant for 2+ leukocytes, negative nitrites, 3+ blood, 2+ protein, positive urinary sediment with significant squamous epithelial cells and 3+ bacteria. Urine sodium 49, urine creatinine 45. Negative for COVID-19, influenza. CT scan of the head and cervical spine negative for any acute intracranial abnormality, fracture, subluxation but does show a right parietal and right frontal scalp hematoma as well as degenerative changes. There is also incidentally found 2 cm well-marginated mass within the left parotid tail with recommended. X-ray of the right elbow is unremarkable as is x-ray of the right hip/pelvis. CT of the abdomen/pelvis shows mild constipation without obstruction as well as right inguinal hernia with loop of small bowel as well as large left renal cyst with rim calcification of the wall but no renal calculi or hydronephrosis. In the ED, given 1 L IV NS, 40 mEq oral potassium chloride and 40 mEq IV potassium chloride. She denies any illicit drug use or alcohol use. Review of Systems Review of Systems: Yes Unobtainable due to mental status [facility] Medical History Dementia Asthma Hypertension Hyperlipidemia Paroxysmal atrial fibrillation Social History Unable to assess alcohol history related to: Unknown Alcohol intake: former Patient Tobacco Use Status: Never used Tobacco Smoked in Last 30 Days: Yes Use of substances other than those prescribed or required for medical reasons: No Advance Directives: Yes Advance Directives on File: Yes Advance Directives Date on File: 02/07/22 Nutrition Risks: No Nutritional Risk Meds Allergies Allergy/AdvReac Type Severity Reaction Status Date / Time cephalexin [From Keflex] Allergy Unknown Verified 12/05/22 06:38 Tetracyclines Allergy Difficulty Verified 02/07/22 14:58 Breathing Home Medications Medication Instructions Recorded Confirmed Last Taken Type amlodipine 5 mg tablet 1 tab PO DAILY 02/07/22 12/05/22 12/04/22 History apixaban 2.5 mg tablet (Eliquis) 1 tab PO BID 02/07/22 12/05/22 12/04/22 History hydrochlorothiazide 25 mg tablet 1 tab PO DAILY 02/07/22 12/05/22 12/04/22 History rosuvastatin 40 mg tablet 1 tab PO BEDTIME 02/07/22 12/05/22 12/04/22 History albuterol sulfate 90 mcg/actuation 2 puff inhalation Q6H PRN wheezing 12/05/22 12/05/22 Unknown History aerosol inhaler Physical Exam Vital Signs and Narrative: Vital Signs: Last Vital Signs Temp 97.6 F 12/05/22 06:38 Pulse 60 12/05/22 11:12 Resp 17 12/05/22 11:12 BP 119/58 L 12/05/22 11:12 Pulse Ox 97 12/05/22 11:12 O2 Del Method Room Air 12/05/22 11:12 BMI result Body Mass Index 22.0 Constitutional - Awake and Alert, No apparent distress Eyes - PERRLA, EOMI Cardiovascular - S1S2, RRR, No edema Respiratory - Normal lung expansion, Normal respiratory effort, No respiratory distress, CTA bilaterally Gastrointestinal - NT / ND; +BS; No rebound or guarding - No CVA tenderness Extremities - no calf tenderness bilaterally, no swelling Skin - Warm/Dry Neurological - Alert & oriented to self, CN II-XII in tact Psychological - Appropriate affect Results Labs 12/05/22 07:08 12/05/22 07:08 Labs: Laboratory Results - last 24 hr 12/05/22 12/05/22 07:08 11:15 MCV 87.7 MCH 30.1 MCHC 34.4 RDW 14.2 Plt Count 382 D MPV 9.9 Immature Gran % (Auto) 0.6 H Neut % (Auto) 85.4 H Lymph % (Auto) 7.1 L [place] % (Auto) 6.4 Eos % (Auto) 0.1 Baso % (Auto) 0.4 Lymph # (Auto) 1.0 L [place] # (Auto) 0.9 Eos # (Auto) 0.0 Baso # (Auto) 0.1 Abs Immat Gran (auto) 0.08 H Absolute Neuts (auto) 12.1 H Absolute Nucleated RBC 0.000 Nucleated RBC % (auto) 0.0 Anion Gap 22 H Estim Creat Clear Calc 7.1 Estimated GFR 11 Random Glucose 199 H Calcium 10.2 D Magnesium 1.9 Total Bilirubin 0.8 AST 64 H ALT 45 H Alkaline Phosphatase 120 H Total Protein 7.3 Albumin 3.6 Urine Color Yellow Urine Appearance Cloudy Urine pH 5.5 Ur Specific [place] 1.010 Urine Protein 100 (2+) H Urine Glucose (UA) Negative Urine Ketones Negative Urine Blood Large (3+) H Urine Nitrite Negative Ur Leukocyte Esterase Moderate (2+) H Urine RBC 3-5 H Urine WBC 11-20 Ur Squamous Epith Cells >20 Urine Bacteria 3+ Hyaline Casts 3-5 Ur Random Sodium 49.0 Urine Creatinine 45.00 COVID-19 (REMI) Negative COVID-19 Clin Com See Note Influenza Type A (RAJANI) Negative Influenza Type B (RAJANI) Negative Influenza A & B Note See Note Imaging Radiologist's Impressions: Impressions Cervical Spine CT 12/05/22 08:27 IMPRESSION: - No acute intracranial findings. Right parietal and right frontal scalp hematoma. - No acute osseous findings within the cervical spine. Multilevel cervical spondylosis. - There is a partially imaged 2 cm well marginated mass within the left parotid tail for which ENT consultation is advised. Head CT 12/05/22 08:27 IMPRESSION: - No acute intracranial findings. Right parietal and right frontal scalp hematoma. - No acute osseous findings within the cervical spine. Multilevel cervical spondylosis. - There is a partially imaged 2 cm well marginated mass within the left parotid tail for which ENT consultation is advised. Elbow X-Ray 12/05/22 09:35 IMPRESSION: 1. Unremarkable right elbow exam. 2. Unremarkable AP pelvis and right hip exam. There is mild osteopenia. No visible acute fracture or dislocation seen. Hip X-Ray 12/05/22 09:35 IMPRESSION: 1. Unremarkable right elbow exam. 2. Unremarkable AP pelvis and right hip exam. There is mild osteopenia. No visible acute fracture or dislocation seen. Abdomen/Pelvis CT 12/05/22 12:19 IMPRESSION: Mild constipation without obstruction. Right inguinal hernia containing a loop of small bowel. Bilateral large left renal cyst large left renal cyst with with rim calcification of the wall. Bosniak type II. No radiopaque renal calculi or hydronephrosis Benign bilateral adrenal nodules left greater than right. Cholecystectomy. Assessment and Plan (1) Acute kidney injury: Status: Acute (2) Hypokalemia: Status: Acute (3) Recurrent falls: Status: Acute Plan 87-year-old female with history of paroxysmal atrial fibrillation anticoagulated with Eliquis, hypertension, hyperlipidemia, asthma, and unspecified dementia who is a current 1 pack per day smoker admitted for acute kidney injury and hypokalemia. # acute kidney injury- FeNa 3.1%, likely AIN related to medication use and dehydration -CT abdomen/pelvis negative for any obstruction -creatinine 3.83, BUN 48. Baseline creatinine around 1.13 -hold hydrochlorothiazide -continue IVF -strict I&O -avoid nephrotoxins -follow BMP -if not improving, consider Nephrology consult # acute hypokalemia -potassium 2.2 -likely multifactorial in setting of hydrochlorothiazide use and dehydration -repleted with 40 mEq potassium chloride orally and 40 mEq potassium chloride IV in ED -repeat BMP @ 630p, follow daily -monitor on telemetry # recurrent falls -peer mechanical in nature -head CT shows scalp hematoma but no acute intracranial abnormality. X-ray elbow and hip negative for fracture -PT evaluation, will likely need STR verses LTC #?UTI -UA with 2+ leukocytes, negative nitrites, 3+ blood, urinary sediment, 3+ bacteria. Significant squamous epithelial cells present -given clinical picture, we will empirically treat with IV Zosyn (allergic to cephalosporins) for UTI -follow urine culture, blood cultures # paroxysmal atrial fibrillation- rate controlled -continue Eliquis for anticoagulation -not on rate control medications # hypertension -blood pressure reasonably controlled -hold hydrochlorothiazide in the setting of above, continue amlodipine # mild intermittent asthma -no acute exacerbation albuterol p.r.n. # HLD -hold statin setting of KASSANDRA # unspecified dementia without behavioral disturbance -mentation baseline per daughter #Nicotine dependence -nicotine patch for nrt -smoking cessation counseling DVT prophylaxis on Eliquis DNR/DNI per MOLST form DaughterYelena is healthcare proxy Patient requires inpatient stay at least 2 midnights for management of acute kidney injury and hypokalemia requiring IV fluid resuscitation and close monitoring of renal function electrolyte levels Time Spent With Patient Time: Total time managing care of this patient today ____ minutes. Quality Stroke Does the patient have a stroke diagnosis?: No VTE Prior VTE?: No VTE Risk Level:: Medical - moderate - high VTE Device Contraindication: Treatment Not Indicated VTE Drug Contraindication: N/A - Med Ordered
[2022-12-05 14:31] VITALS: BP 134/57; PULSE 61; RESP 12; O2SAT 94
[2022-12-05 20:45] VITALS: BP 137/61; PULSE 78; RESP 22; TEMP 36.5; O2SAT 92
--- NOTE | 2022-12-05 21:56 | MHC.EDTECH ---
Assisgment RN informed This Tech that the patient might have soiled herself. This Tech went and gathered supplies to take care of the patient. The patient had a Medium BM. Patient was able to assist this tech with Rolling and held on to the side rail. This Tech cleaned up the patient and change out her Bed pads. Patient was able to roll over to the other way, This Tech found the purewick had been soiled; changed with a new one, replaced. Patient was then boosted in the bed and repositioned, given a warm blanket, lights turned down. All set.
--- NOTE | 2022-12-05 22:17 | PC.NURSE ---
pt picking at scars and sutures on R elbow. applied bandage to cover skin tear
[2022-12-06 00:41] VITALS: BP 137/59; PULSE 65; RESP 21; TEMP 36.9; O2SAT 91
--- NOTE | 2022-12-06 01:21 | PC.NURSE ---
report given to Ivett RN
[2022-12-06 02:15] VITALS: BMI 24.0
[2022-12-06 02:32] VITALS: BP 136/59; PULSE 74; RESP 18; TEMP 36.4; O2SAT 90
[2022-12-06 07:49] VITALS: BP 133/62; PULSE 76; RESP 20; TEMP 36.3; O2SAT 88
--- NOTE | 2022-12-06 09:10 | MHC.CM.PN ---
CM spoke at length with Daughter/HCP/Maribell; STR into possible LTC is the goal pending PT eval and [employer] auth. A referral has been made to [facility] to assist with a Easy Tempo nasrin for possible LTC. CM has initiated and will follow for dc planning. Patient was living alone with close oversight from Maribell, [facility]/Homemaker and privately hired assistance. Patient has a 4 prong cane and a walker and her PCP is Dr. Miri Aldana.
[2022-12-06 11:20] VITALS: BP 116/60; PULSE 75; RESP 20; TEMP 36.7; O2SAT 90
--- NOTE | 2022-12-06 14:47 | HO.PM.IMPN ---
Subjective Subjective Date of Service: 12/06/22 Interval History: Seen and evaluated Feels better today and asking when will she go home No fever or chills Cr trending down Review of Systems Review of Systems: Yes all other systems are reviewed and are negative Physical Exam Vital Signs: Vital Signs: Last Vital Signs Temp 98.1 F 12/06/22 11:20 Pulse 75 12/06/22 11:20 Resp 20 12/06/22 11:20 BP 116/60 12/06/22 11:20 Pulse Ox 90 L 12/06/22 11:20 O2 Del Method Room Air 12/06/22 11:20 BMI result Body Mass Index 24.0 Const: Other: Constitutional : Awake, interactive, not in distress Neck : Normal inspection, Supple Cardiovascular : RRR, no JVP, no lower extremity edema Respiratory : good bilateral air entry, no crackles, wheezes or rhonchi Gastrointestinal: soft, lax, Normal bowel sounds, Non tender Skin : Warm, Dry, bruise around her right eye, multiple small bruises on her skin Neurological : Alert & oriented x3, No focal deficit Objective Data Active Medications Acetaminophen (Acetaminophen 325 Mg Tablet) 650 mg PO Q6H PRN PRN Reason: Pain, Mild (Pain Scale 1-3) Albuterol Sulfate (Albuterol Sulfate 90 Mcg 8 Gm Inhaler) 2 puff INHALE Q6H PRN PRN Reason: wheezing Amlodipine Besylate (Amlodipine Besylate 5 Mg Tablet) 5 mg PO DAILY [facility]; Protocol Last Admin: 12/06/22 08:32 Dose: 5 mg Documented By: MICHAEL Apixaban (Apixaban 2.5 Mg Tablet) 2.5 mg PO BID [facility] Last Admin: 12/06/22 08:32 Dose: 2.5 mg Documented By: MICHAEL Carbamide Peroxide (Carbamide Peroxide 6.5% Otic 15 Ml Drpbtl) 5 drop EAR-RIGHT BID [facility] Stop: 12/09/22 16:07 Last Admin: 12/06/22 08:34 Dose: 5 drop Documented By: MICHAEL Docusate Sodium (Docusate Sodium 100 Mg Capsule) 100 mg PO DAILY PRN PRN Reason: Constipation Sodium Chloride (Ns) 1,000 mls @ 100 mls/hr IVCONT .Q10H [facility] Last Admin: 12/06/22 13:19 Dose: 100 mls/hr Documented By: MICHAEL Piperacillin Sod/Tazobactam (Sod 2.25 gm/ Sodium Chloride) 50 mls @ 100 mls/hr IV Q8H [facility] Last Infusion: 12/06/22 14:00 Dose: Infused Documented By: MICHAEL Nicotine (Nicotine 21 Mg Patch.Td24) 21 mg TRANSDERMA DAILY [facility] Last Admin: 12/06/22 08:32 Dose: 21 mg Documented By: MICHAEL Ondansetron HCl (Ondansetron Hcl 4 Mg/2 Ml Vial) 4 mg IVPUSH Q8H PRN PRN Reason: Nausea and Vomiting Sodium Chloride (0.9 % Sodium Chloride Flush 3 Ml Syringe) 3 ml IVFLUSH QSHIFT [facility] Last Admin: 12/06/22 08:32 Dose: Not Given Documented By: MICHAEL Non-Admin Reason: IV Running Labs 12/06/22 07:58 12/06/22 07:58 Labs: Laboratory Results - last 24 hr 12/05/22 12/05/22 12/06/22 15:13 18:36 07:58 MCV 88.2 MCH 30.1 MCHC 34.1 RDW 14.6 Plt Count 328 MPV 9.9 Immature Gran % (Auto) 0.3 Neut % (Auto) 84.3 H Lymph % (Auto) 6.3 L Perry % (Auto) 8.8 Eos % (Auto) 0.1 Baso % (Auto) 0.2 Lymph # (Auto) 0.9 L Perry # (Auto) 1.3 H Eos # (Auto) 0.0 Baso # (Auto) 0.0 Abs Immat Gran (auto) 0.05 H Absolute Neuts (auto) 12.5 H Absolute Nucleated RBC 0.000 Nucleated RBC % (auto) 0.0 Hold Purple Top SEE NOTE Anion Gap 19 17 Estim Creat Clear Calc 8.3 9.9 Estimated GFR 14 15 Random Glucose 141 H Fasting Glucose 131 H Calcium 9.4 D 9.3 Hold Green Top See Note Microbiology Microbiology Results: Microbiology 12/05/22 Unknown Urine Culture - Final Urine clean catch - Urine garcia top Assessment and Plan (1) Acute kidney injury: Status: Acute (2) Hypokalemia: Status: Acute (3) Recurrent falls: Status: Acute (4) Physical deconditioning: Status: Acute Plan 87-year-old female with history of paroxysmal atrial fibrillation anticoagulated with Eliquis, hypertension, hyperlipidemia, asthma, and unspecified dementia who is a current 1 pack per day smoker admitted for acute kidney injury and hypokalemia. # acute kidney injury likely ATN CT abdomen/pelvis negative for any obstruction Cr trending down to 3 Hold nephrotoxic continue IVF strict I&O follow BMP # acute hypokalemia still low at 3 Give replacmeent follow BMP # recurrent falls mechanical in nature head CT shows scalp hematoma but no acute intracranial abnormality. X-ray elbow and hip negative for fracture PT evaluation, will likely need STR verses LTC # UTI empirically treat with IV Zosyn (allergic to cephalosporins) for UTI follow urine , blood cultures # paroxysmal atrial fibrillation rate controlled continue Eliquis for anticoagulation not on rate control medications # hypertension blood pressure reasonably controlled hold hydrochlorothiazide in the setting of above, continue amlodipine # mild intermittent asthma no acute exacerbation albuterol p.r.n. # HLD hold statin setting of KASSANDRA # unspecified dementia without behavioral disturbance mentation baseline per daughter #Nicotine dependence nicotine patch for nrt smoking cessation counseling DVT prophylaxis on Eliquis DNR/DNI per MOLST form DaughterYelena is healthcare proxy Patient requires inpatient stay overnight for management of acute kidney injury and hypokalemia requiring IV fluid resuscitation and close monitoring of renal function electrolyte levels Time Spent With Patient Time: Total time managing care of this patient today ____ minutes. Quality Stroke Does the patient have a stroke diagnosis?: No VTE Prior VTE?: No VTE Risk Level:: Medical - moderate - high VTE Device Contraindication: Treatment Not Indicated VTE Drug Contraindication: N/A - Med Ordered
[2022-12-06 15:39] VITALS: BP 144/64; PULSE 80; RESP 18; TEMP 36.8; O2SAT 91
[2022-12-06 19:29] VITALS: BP 135/65; PULSE 81; RESP 18; TEMP 36.8; O2SAT 92
[2022-12-07] VITALS (7 sets, daily range): BP systolic 109–137; BP diastolic 53–72; PULSE 56–87; RESP 16–20; TEMP 36.1–36.9; O2SAT 91–92
--- NOTE | 2022-12-07 09:42 | HO.WOUND ---
Addendum entered by Nichelle Stoner RN 12/07/22 11:59: Topical Recommendations: Cleanse with NS, Pat dry. Apply double layer Xeroform, cover with gauze and gauze wrap, secure with tape. Change Daily. Original Note: Wound Care Note Wound consult; Initial 87yr old female admitted to [facility] on 12/05/22 13:34 for KASSANDRA and Hypokalemia - see H&P for detailed history. Wound Etiology: Right elbow skin tear Wound Bed: Partial thickness tissue loss, with viable flap re-approximated, wound bed clean red pink moist tissue Periwound: No induration no fluctuance, Mild erythema noted with ecchymosis. No s/s of infection. Topical Recommendations: Cleanse with NS, Pat dry. Apply double layer Xeroform, cover with gauze and gauze wrap, secure with tape. Change Daily. Reconsult for wound care nurse for worsening wounds and or concerns. TT sent to Hailee Calhoun MD with topical recommendations.
--- NOTE | 2022-12-07 12:19 | MHC.CM.PN ---
EMR REVIEWED, PT W/HEART FAILURE NO PLAN FOR D/C TODAY, PLAN CONT'S TO BE FOR STR AND ANTIC TRANSITION TO LTC, [facility] FOLLOWING, CM WILL CONT TO FOLLOW D/C NEEDS.
--- NOTE | 2022-12-07 12:58 | HO.PM.IMPN ---
Subjective Subjective Date of Service: 12/07/22 Interval History: Seen and evaluated Feels better today and she wants to go home No fever or chills Cr trending down Review of Systems Review of Systems: Yes all other systems are reviewed and are negative Physical Exam Vital Signs: Vital Signs: Last Vital Signs Temp 97.7 F 12/07/22 12:00 Pulse 73 12/07/22 12:00 Resp 20 12/07/22 12:00 BP 124/60 12/07/22 12:00 Pulse Ox 91 L 12/07/22 12:00 O2 Del Method Room Air 12/07/22 12:00 BMI result Body Mass Index 24.0 Const: Other: Constitutional : Awake, interactive, not in distress Neck : Normal inspection, Supple Cardiovascular : RRR, no JVP, no lower extremity edema Respiratory : good bilateral air entry, basal fine bilateral crackles, wheezes or rhonchi Gastrointestinal: soft, lax, Normal bowel sounds, Non tender Skin : Warm, Dry, bruise around her right eye, multiple small bruises on her skin Neurological : Alert & oriented x3, No focal deficit Objective Data Active Medications Acetaminophen (Acetaminophen 325 Mg Tablet) 650 mg PO Q6H PRN PRN Reason: Pain, Mild (Pain Scale 1-3) Albuterol Sulfate (Albuterol Sulfate 90 Mcg 8 Gm Inhaler) 2 puff INHALE Q6H PRN PRN Reason: wheezing Amlodipine Besylate (Amlodipine Besylate 5 Mg Tablet) 5 mg PO DAILY [facility]; Protocol Last Admin: 12/07/22 09:20 Dose: 5 mg Documented By: MICHAEL Apixaban (Apixaban 2.5 Mg Tablet) 2.5 mg PO BID [facility] Last Admin: 12/07/22 09:20 Dose: 2.5 mg Documented By: MICHAEL Carbamide Peroxide (Carbamide Peroxide 6.5% Otic 15 Ml Drpbtl) 5 drop EAR-RIGHT BID [facility] Stop: 12/09/22 16:07 Last Admin: 12/07/22 09:22 Dose: 5 drop Documented By: MICHAEL Docusate Sodium (Docusate Sodium 100 Mg Capsule) 100 mg PO DAILY PRN PRN Reason: Constipation Piperacillin Sod/Tazobactam (Sod 2.25 gm/ Sodium Chloride) 50 mls @ 100 mls/hr IV Q8H [facility] Last Infusion: 12/07/22 05:35 Dose: Infused Documented By: EDISON Melatonin (Melatonin 3 Mg Tablet) 6 mg PO BEDTIME PRN PRN Reason: Insomnia Last Admin: 12/07/22 00:27 Dose: 6 mg Documented By: EDISON Nicotine (Nicotine 21 Mg Patch.Td24) 21 mg TRANSDERMA DAILY [facility] Last Admin: 12/07/22 09:23 Dose: Not Given Documented By: MICHAEL Non-Admin Reason: Patient Refused Ondansetron HCl (Ondansetron Hcl 4 Mg/2 Ml Vial) 4 mg IVPUSH Q8H PRN PRN Reason: Nausea and Vomiting Sodium Chloride (0.9 % Sodium Chloride Flush 3 Ml Syringe) 3 ml IVFLUSH QSHIFT [facility] Last Admin: 12/07/22 09:20 Dose: 3 ml Documented By: MICHAEL Labs 12/06/22 07:58 12/07/22 05:51 Labs: Laboratory Results - last 24 hr 12/07/22 05:51 Hold Purple Top SEE NOTE Anion Gap 17 Estim Creat Clear Calc 10.6 Estimated GFR 16 Random Glucose 149 H Calcium 9.5 Microbiology Microbiology Results: Microbiology 12/05/22 15:13 Blood Culture - Preliminary Blood - Venous No growth after 24 hours. 12/05/22 15:13 Blood Culture - Preliminary Blood - Venous No growth after 24 hours. 12/05/22 Unknown Urine Culture - Final Urine clean catch - Urine garcia top Assessment and Plan (1) Physical deconditioning: Status: Acute (2) Acute kidney injury: Status: Acute (3) Hypokalemia: Status: Acute (4) Recurrent falls: Status: Acute (5) Acute exacerbation of congestive heart failure: Status: Acute Plan 87-year-old female with history of paroxysmal atrial fibrillation anticoagulated with Eliquis, hypertension, hyperlipidemia, asthma, and unspecified dementia who is a current 1 pack per day smoker admitted for acute kidney injury and hypokalemia. # acute kidney injury likely ATN CT abdomen/pelvis negative for any obstruction Cr trending down to 2.7 Hold nephrotoxic DC IVF strict I&O follow BMP # acute hypokalemia still low at 3 Give replacmeent follow BMP # diastolic CHF with exacerbation based on low O2 and CXR given lasix iv Hold HCT monitor clinical course for any need of extra lasix # recurrent falls mechanical in nature head CT shows scalp hematoma but no acute intracranial abnormality. X-ray elbow and hip negative for fracture PT evaluation, will likely need STR verses LTC # UTI empirically treat with IV Zosyn (allergic to cephalosporins) for UTI negative culture of urine , pending blood cultures # paroxysmal atrial fibrillation rate controlled continue Eliquis for anticoagulation not on rate control medications # hypertension blood pressure reasonably controlled hold hydrochlorothiazide in the setting of above, continue amlodipine # mild intermittent asthma no acute exacerbation albuterol p.r.n. # HLD hold statin setting of KASSANDRA # unspecified dementia without behavioral disturbance mentation baseline per daughter #Nicotine dependence nicotine patch for nrt smoking cessation counseling DVT prophylaxis on Eliquis DNR/DNI per MOLST form DaughterYelena is healthcare proxy Patient requires inpatient stay overnight for management of acute kidney injury and hypokalemia, CHF exacerbation requiring close monitoring of renal function electrolyte levels Time Spent With Patient Time: Total time managing care of this patient today ____ minutes. Quality Stroke Does the patient have a stroke diagnosis?: No VTE Prior VTE?: No VTE Risk Level:: Medical - moderate - high VTE Device Contraindication: Treatment Not Indicated VTE Drug Contraindication: N/A - Med Ordered
--- NOTE | 2022-12-07 13:55 | MHC.CM.PN ---
Cm met w/pt and dtr Yelena at bedside who would like pt to go to STR, pt reporting she would like to go home as she wants to smoke however is agreeable to a STR. Cm spoke w/dtr/hcp/poa outside of room to discuss plan and Yelena reports she believes pt may need to transition to LTC and was requesting [facility] however [facility] is not contracted w/pt's insurance, dtr reported [facility] [address] would also be okay and they are following. Francisco Javier emailed Yelena list of required documents for LTC nasrin to [email or web address]. Antic pt will be cleared for dc to [facility] tomorrow 12/08/22. Cm will cont to follow d/c needs
--- NOTE | 2022-12-07 16:56 | PC.NURSE ---
Patient A&OX3 forgetful. Denies pain/discomfort. Refusing nicotine patch this am. LSC but dim, denies SOB or CP, Afib on tele. BS+X4 abdomen soft non-tender denies nausea/vomiting. Incontinent of urine care provided purewick placed. Dressing to right elbow skin tear changed by Nichelle posada RN this am. Dark to pale purple bruising to right eye. OOB to chair in am with 1 assist alarms for safety. Continue IV antibiotics per order, IV lasix given in afternoon per order. Plan for transfer to rehab when ready. CM met with patient and daughter at bedside this afternoon. Will continue to monitor and report changes
[2022-12-08 03:28] VITALS: BP 109/56; PULSE 57; RESP 18; TEMP 36.6; O2SAT 94
[2022-12-08 08:00] VITALS: BP 123/62; PULSE 63; RESP 18; TEMP 36.7; O2SAT 93
--- NOTE | 2022-12-08 08:38 | MHC.CM.PN ---
Addendum entered by Alisson Virk RN 12/08/22 10:50: CM RECEIVED MESSAGE FROM [facility] REPORTING THEY MAY HAVE BED TOMORROW PENDING D/C, HOSPITALIST AWARE AND PLAN TO HOLD PT ADDITIONAL NIGHT, CM WILL CONT TO FOLLOW S/C NEEDS. Original Note: CM CONTACTED PT'S DTR [facility] TO REVIEW BED OFFERS, [facility] REPORTS [facility] WOULD BE FIRST CHOICE, UPDATES SENT AND CM AWAITING FOR BED OFFER, JOJO CASTANEDA CONT'S TO FOLLOW, CM WILL CONT TO FOLLOW.
[2022-12-08 11:59] VITALS: BP 113/58; PULSE 58; RESP 18; TEMP 36.7; O2SAT 92
[2022-12-08 12:38] LABS: Anion Gap 19 (12-20); Blood Urea Nitrogen 38 mg/dL (9-16); Calcium 9.9 mg/dL (8.4-10.2); Carbon Dioxide 21 mmol/L (22-29); Chloride 102 mmol/L (96-108); Creatinine Clr Calc Pharmacy 11.3; Estimated Glomerular Filt Rate 17; Glucose Random 163 mg/dL (60-115); Potassium 5.1 mmol/L (3.3-5.1); Sodium 137 mmol/L (135-145)
[2022-12-08 15:14] VITALS: BP 108/57; PULSE 58; RESP 16; TEMP 36.6; O2SAT 92
--- NOTE | 2022-12-08 15:21 | P.PNIM_ITS ---
Subjective Subjective Date of Service: 12/08/22 Interval History: Seen and evaluated Feels better overall No fever or chills Cr trending down Review of Systems Review of Systems: Yes all other systems are reviewed and are negative Physical Exam 2 Vital Signs: Vital Signs: Last Vital Signs Temp 97.9 F 12/08/22 15:14 Pulse 58 12/08/22 15:14 Resp 16 12/08/22 15:14 BP 108/57 L 12/08/22 15:14 Pulse Ox 92 12/08/22 15:14 O2 Del Method Room Air 12/08/22 15:14 BMI result Body Mass Index 24.0 Const: Other: Constitutional : Awake, interactive, not in distress Neck : Normal inspection, Supple Cardiovascular : RRR, no JVP, no lower extremity edema Respiratory : good bilateral air entry, no significant crackles, wheezes or rhonchi Gastrointestinal: soft, lax, Normal bowel sounds, Non tender Skin : Warm, Dry, bruise around her right eye, multiple small bruises on her skin Neurological : Alert & oriented x3, No focal deficit Objective Data Active Medications Acetaminophen (Acetaminophen 325 Mg Tablet) 650 mg PO Q6H PRN PRN Reason: Pain, Mild (Pain Scale 1-3) Albuterol Sulfate (Albuterol Sulfate 90 Mcg 8 Gm Inhaler) 2 puff INHALE Q6H PRN PRN Reason: wheezing Amlodipine Besylate (Amlodipine Besylate 5 Mg Tablet) 5 mg PO DAILY [facility]; Protocol Last Admin: 12/08/22 09:13 Dose: 5 mg Documented By: MICHAEL Apixaban (Apixaban 2.5 Mg Tablet) 2.5 mg PO BID [facility] Last Admin: 12/08/22 09:13 Dose: 2.5 mg Documented By: MICHAEL Carbamide Peroxide (Carbamide Peroxide 6.5% Otic 15 Ml Drpbtl) 5 drop EAR-RIGHT BID [facility] Stop: 12/09/22 16:07 Last Admin: 12/08/22 09:14 Dose: 5 drop Documented By: MICHAEL Docusate Sodium (Docusate Sodium 100 Mg Capsule) 100 mg PO DAILY PRN PRN Reason: Constipation Piperacillin Sod/Tazobactam (Sod 2.25 gm/ Sodium Chloride) 50 mls @ 100 mls/hr IV Q8H [facility] Last Infusion: 12/08/22 15:04 Dose: Infused Documented By: MICHAEL Melatonin (Melatonin 3 Mg Tablet) 6 mg PO BEDTIME PRN PRN Reason: Insomnia Last Admin: 12/07/22 22:30 Dose: 6 mg Documented By: JOHN Nicotine (Nicotine 21 Mg Patch.Td24) 21 mg TRANSDERMA DAILY [facility] Last Admin: 12/08/22 09:13 Dose: Not Given Documented By: MICHAEL Non-Admin Reason: Patient Refused Ondansetron HCl (Ondansetron Hcl 4 Mg/2 Ml Vial) 4 mg IVPUSH Q8H PRN PRN Reason: Nausea and Vomiting Sodium Chloride (0.9 % Sodium Chloride Flush 3 Ml Syringe) 3 ml IVFLUSH QSHIFT [facility] Last Admin: 12/08/22 07:59 Dose: Not Given Documented By: MICHAEL Non-Admin Reason: No Insulin Coverage Labs 12/06/22 07:58 12/08/22 12:07 Labs: Laboratory Results - last 24 hr 12/08/22 12/08/22 04:45 12:07 Anion Gap 17 19 Estim Creat Clear Calc 11.2 11.3 Estimated GFR 17 17 Random Glucose 121 H 163 H Calcium 9.3 9.9 D B-Natriuretic Peptide 575 H Microbiology Microbiology Results: Microbiology 12/05/22 15:13 Blood Culture - Preliminary Blood - Venous No growth after 48 hours. 12/05/22 15:13 Blood Culture - Preliminary Blood - Venous No growth after 48 hours. Assessment and Plan (1) Acute exacerbation of congestive heart failure: Status: Acute (2) Physical deconditioning: Status: Acute (3) Acute kidney injury: Status: Acute (4) Hypokalemia: Status: Acute (5) Recurrent falls: Status: Acute Plan 87-year-old female with history of paroxysmal atrial fibrillation anticoagulated with Eliquis, hypertension, hyperlipidemia, asthma, and unspecified dementia who is a current 1 pack per day smoker admitted for acute kidney injury and hypokalemia. # acute kidney injury likely ATN CT abdomen/pelvis negative for any obstruction Cr trending down to 2.6 Hold nephrotoxic DC IVF strict I&O follow BMP # acute hypokalemia resolved after replacmeent follow BMP # diastolic CHF with exacerbation based on low O2 and CXR given lasix iv yesterday, to hold on now Hold HCT monitor clinical course for any need of extra lasix # recurrent falls mechanical in nature head CT shows scalp hematoma but no acute intracranial abnormality. X-ray elbow and hip negative for fracture PT evaluation, will likely need STR verses LTC # UTI empirically treat with IV Zosyn (allergic to cephalosporins) for UTI, finished 3 days and DCd negative culture of urine and blood # paroxysmal atrial fibrillation rate controlled continue Eliquis for anticoagulation not on rate control medications # hypertension blood pressure reasonably controlled hold hydrochlorothiazide in the setting of above, continue amlodipine # mild intermittent asthma no acute exacerbation albuterol p.r.n. # HLD hold statin setting of KASSANDRA # unspecified dementia without behavioral disturbance mentation baseline per daughter #Nicotine dependence nicotine patch for nrt smoking cessation counseling DVT prophylaxis on Eliquis DNR/DNI per MOLST form DaughterYelena is healthcare proxy Patient requires inpatient stay overnight for management of acute kidney injury and hypokalemia, CHF exacerbation requiring close monitoring of renal function electrolyte levels Time Spent With Patient Time: Total time managing care of this patient today ____ minutes. Quality Stroke Does the patient have a stroke diagnosis?: No VTE Prior VTE?: No VTE Risk Level:: Medical - moderate - high VTE Device Contraindication: Treatment Not Indicated VTE Drug Contraindication: N/A - Med Ordered
--- NOTE | 2022-12-08 18:25 | PC.NURSE ---
Pt alert to self waxes and wanes on time and place. Incontinent of soft/loose stool x4 today care provided. Purewick in place with clear yellow urine. Continues IV antibiotics per order. OOB to chair in afternoon seen by PT. IV and PO potassium replacement given per order. Awaiting rehab placement. Will continue to monitor and report changes
[2022-12-08 19:42] VITALS: BP 98/61; PULSE 67; RESP 16; TEMP 36.7; O2SAT 92
[2022-12-08] MEDS: Melatonin 3 MG TABLET 6 MG PO (22:12)
[2022-12-08] MEDS: Apixaban 2.5 MG TABLET PO (22:13)
[2022-12-08 23:50] VITALS: BP 120/60; PULSE 64; RESP 18; TEMP 36.3; O2SAT 92
[2022-12-09 03:05] VITALS: BP 123/60; PULSE 65; RESP 18; TEMP 36.2; O2SAT 94
[2022-12-09 07:43] VITALS: BP 139/66; PULSE 60; RESP 18; TEMP 36.2; O2SAT 94
[2022-12-09 07:57] LABS: Anion Gap 15 (12-20); Blood Urea Nitrogen 38 mg/dL (9-16); Calcium 9.3 mg/dL (8.4-10.2); Carbon Dioxide 23 mmol/L (22-29); Chloride 104 mmol/L (96-108); Creatinine Clr Calc Pharmacy 12.2; Estimated Glomerular Filt Rate 19; Glucose Random 91 mg/dL (60-115); Potassium 4.2 mmol/L (3.3-5.1); Sodium 138 mmol/L (135-145)
[2022-12-09 08:04] LABS: B Type Natriuretic Peptide 409 pg/mL (<100)
[2022-12-09] MEDS: amLODIPine Besylate 5 MG TABLET PO (08:46)
[2022-12-09] MEDS: Apixaban 2.5 MG TABLET PO (08:46)
[2022-12-09] MEDS: Nicotine 21 MG PATCH.TD24 TRANSDERMA (08:46)
--- NOTE | 2022-12-09 10:37 | MHC.CM.PN ---
Cm contacted pt's dtr/hcp Yelena at number on file as [facility] does not have a bed available, yelena requested cm attempt to get pt in to [facility] and then [facility] if they are unable to accommodate, cm received message from [facility] reporting they are unable to accommodate pt, updates sent to [facility] and they will go for auth, cm attempted to contact pt's dtr Yelena w/update and detailed message left, cm will follow.
[2022-12-09 11:29] VITALS: BP 129/63; PULSE 62; RESP 17; TEMP 36.1; O2SAT 94
--- NOTE | 2022-12-09 12:16 | HO.PM.IMPN ---
Subjective Subjective Date of Service: 12/09/22 Interval History: feeling better Physical Exam Vital Signs: Vital Signs: Last Vital Signs Temp 97.0 F 12/09/22 11:29 Pulse 62 12/09/22 11:29 Resp 17 12/09/22 11:29 BP 129/63 12/09/22 11:29 Pulse Ox 94 12/09/22 11:29 O2 Del Method Room Air 12/09/22 11:29 BMI result Body Mass Index 24.0 Const: Other: Constitutional : Awake, interactive, not in distress Neck : Normal inspection, Supple Cardiovascular : RRR, no JVP, no lower extremity edema Respiratory : good bilateral air entry, no significant crackles, wheezes or rhonchi Gastrointestinal: soft, lax, Normal bowel sounds, Non tender Skin : Warm, Dry, bruise around her right eye, multiple small bruises on her skin Neurological : Alert & oriented x3, No focal deficit Objective Data Active Medications Acetaminophen (Acetaminophen 325 Mg Tablet) 650 mg PO Q6H PRN PRN Reason: Pain, Mild (Pain Scale 1-3) Albuterol Sulfate (Albuterol Sulfate 90 Mcg 8 Gm Inhaler) 2 puff INHALE Q6H PRN PRN Reason: wheezing Amlodipine Besylate (Amlodipine Besylate 5 Mg Tablet) 5 mg PO DAILY [facility]; Protocol Last Admin: 12/09/22 08:46 Dose: 5 mg Documented By: YOCASTA Apixaban (Apixaban 2.5 Mg Tablet) 2.5 mg PO BID [facility] Last Admin: 12/09/22 08:46 Dose: 2.5 mg Documented By: YOCASTA Carbamide Peroxide (Carbamide Peroxide 6.5% Otic 15 Ml Drpbtl) 5 drop EAR-RIGHT BID [facility] Stop: 12/09/22 16:07 Last Admin: 12/09/22 08:49 Dose: 5 drop Documented By: YOCASTA Docusate Sodium (Docusate Sodium 100 Mg Capsule) 100 mg PO DAILY PRN PRN Reason: Constipation Melatonin (Melatonin 3 Mg Tablet) 6 mg PO BEDTIME PRN PRN Reason: Insomnia Last Admin: 12/08/22 22:12 Dose: 6 mg Documented By: MEGAN Nicotine (Nicotine 21 Mg Patch.Td24) 21 mg TRANSDERMA DAILY [facility] Last Admin: 12/09/22 08:46 Dose: 21 mg Documented By: YOCASTA Ondansetron HCl (Ondansetron Hcl 4 Mg/2 Ml Vial) 4 mg IVPUSH Q8H PRN PRN Reason: Nausea and Vomiting Sodium Chloride (0.9 % Sodium Chloride Flush 3 Ml Syringe) 3 ml IVFLUSH QSHIFT [facility] Last Admin: 12/09/22 08:47 Dose: 3 ml Documented By: YOCASTA Labs 12/06/22 07:58 12/09/22 06:58 Labs: Laboratory Results - last 24 hr 12/08/22 12/09/22 12:07 06:58 Anion Gap 19 15 Estim Creat Clear Calc 11.3 12.2 Estimated GFR 17 19 Random Glucose 163 H 91 Calcium 9.9 D 9.3 D B-Natriuretic Peptide 409 H Assessment and Plan (1) Acute exacerbation of congestive heart failure: Status: Acute (2) Physical deconditioning: Status: Acute (3) Acute kidney injury: Status: Acute (4) Hypokalemia: Status: Acute (5) Recurrent falls: Status: Acute Plan 87-year-old female with history of paroxysmal atrial fibrillation anticoagulated with Eliquis, hypertension, hyperlipidemia, asthma, and unspecified dementia who is a current 1 pack per day smoker admitted for acute kidney injury and hypokalemia. acute kidney injury likely ATN CT abdomen/pelvis negative for any obstruction Cr trending down Hold nephrotoxic acute hypokalemia resolved after replacmeent stop hctz diastolic CHF with exacerbation based on low O2 and CXR given lasix iv yesterday, to hold on now Hold HCT monitor clinical course for any need of extra lasix recurrent falls mechanical in nature head CT shows scalp hematoma but no acute intracranial abnormality. X-ray elbow and hip negative for fracture PT evaluation, will likely need STR verses LTC UTI empirically treat with IV Zosyn (allergic to cephalosporins) for UTI, finished 3 days and DCd negative culture of urine and blood paroxysmal atrial fibrillation rate controlled continue Eliquis for anticoagulation not on rate control medications hypertension blood pressure reasonably controlled hold hydrochlorothiazide in the setting of above, continue amlodipine mild intermittent asthma no acute exacerbation albuterol p.r.n. HLD hold statin setting of KASSANDRA unspecified dementia without behavioral disturbance mentation baseline per daughter Nicotine dependence nicotine patch for nrt smoking cessation counseling DVT prophylaxis on Eliquis DNR/DNI per MOLST form reason for continued hospitalization:awaiting placement Time Spent With Patient Time: Total time managing care of this patient today ____ minutes. Quality Stroke Does the patient have a stroke diagnosis?: No VTE Prior VTE?: No VTE Risk Level:: Medical - moderate - high VTE Device Contraindication: Treatment Not Indicated VTE Drug Contraindication: N/A - Med Ordered
--- NOTE | 2022-12-09 12:44 | MHC.CM.PN ---
Addendum entered by Alisson Virk, RN 12/09/22 13:07: cm received call back from Yelena who reports she is not at home and will call cm back w/ss# once she returns home, snf updated. Original Note: maggie duron requesting pt's ss#, financial services/insurance verification unable to access, cm has left a second message w/dtr/hcp Yelena at 12:37pm with request for ss#, no answer and detailed message left, cm met w/pt who states, I have no idea what's going on around here. cm to await call back from Yelena, [facility] updated via [employer]. cm will cont to follow.
--- NOTE | 2022-12-09 14:31 | MHC.CM.PN ---
PT MEDICALLY CLEARED FOR DC TO [facility] AT [facility] FOR TRANSPORT, IMM 12/09/22.
--- NOTE | 2022-12-09 14:32 | P.DS_ITS ---
DS: Providers Provider Date of Service: 12/09/22 Date of admission: 12/05/22 13:34 Primary care physician: Miri Aldana MD DS: Diagnosis Discharge Diagnosis (1) Acute exacerbation of congestive heart failure: Status: Acute (2) Physical deconditioning: Status: Acute (3) Acute kidney injury: Status: Acute (4) Hypokalemia: Status: Acute (5) Recurrent falls: Status: Acute DS: Summary Hospital Course Hospital Course: from initial hpi: 87-year-old female with history of paroxysmal atrial fibrillation anticoagulated with Eliquis, hypertension, hyperlipidemia, asthma, and unspecified dementia who is a current 1 pack per day smoker presented to the ED via EMS following a unwitnessed mechanical fall. There was head strike but no loss of consciousness per patient. The patient is not the best historian secondary to her dementia but she denies any lightheadedness, palpitations, shortness of breath, chest pain prior to the fall. Her daughter who is at bedside states that she has had 3 falls in the last 2 weeks. Her daughter reports that she has not been eating much and is not drinking as much as she should. The patient currently lives at home with daytime care provided by family and other staff but is alone at night. Her daughter is considering long-term care. The patient does ambulate with a cane or a walker. On arrival, vitals stable. There is a leukocytosis of 14.2, baseline around 1.13. BUN 48. Sodium 134, potassium 2.2, chloride 85. AST 64, ALT 45, alkaline phosphatase 120, total CK 555. Urinalysis significant for 2+ leukocytes, negative nitrites, 3+ blood, 2+ protein, positive urinary sediment with significant squamous epithelial cells and 3+ bacteria. Urine sodium 49, urine creatinine 45. Negative for COVID-19, influenza. CT scan of the head and cervical spine negative for any acute intracranial abnormality, fracture, subluxation but does show a right parietal and right frontal scalp hematoma as well as degenerative changes. There is also incidentally found 2 cm well- marginated mass within the left parotid tail with recommended. X-ray of the right elbow is unremarkable as is x-ray of the right hip/pelvis. CT of the abdomen/pelvis shows mild constipation without obstruction as well as right inguinal hernia with loop of small bowel as well as large left renal cyst with rim calcification of the wall but no renal calculi or hydronephrosis. In the ED, given 1 L IV NS, 40 mEq oral potassium chloride and 40 mEq IV potassium chloride. She denies any illicit drug use or alcohol use. hospital course: Patient was admitted for acute kidney injury likely acute tubular necrosis. By time of discharge creatinine is improving but not back to baseline. Should continue to monitor. Also noted to have severe acute hyperemia. Improved after replacement. Hydrochlorothiazide has been discontinued. For acute on chronic diastolic CHF she was given IV Lasix and returned to baseline. For fall she was seen by Physical therapy who recommended short-term rehab at [facility]. For your tract infection patient received 3 days of IV antibiotics, cultures were negative. For paroxysmal atrial fibrillation she was continued on Eliquis. Hypertension continue amlodipine, hydrochlorothiazide has been discontinued. For mild intermittent asthma she room table. For unspecified dementia she was at baseline. Patient is feeling better will be discharged to [facility]. Time Spent with Patient Time attestation: Total time managing care of this patient today ____ minutes. Discharge coordination time: Greater than 30 minutes Quality: Safe Use of Opioids Does Pt have an Active Cancer Diagnosis on the Problem List?: No Quality: Stroke Does the patient have a stroke diagnosis?: No Physical Exam Vital Signs: Vital Signs: Last Vital Signs Temp 97.0 F 12/09/22 11:29 Pulse 62 12/09/22 11:29 Resp 17 12/09/22 11:29 BP 129/63 12/09/22 11:29 Pulse Ox 94 12/09/22 11:29 O2 Del Method Room Air 12/09/22 11:29 BMI result Body Mass Index 24.0 Const: Other: Constitutional : Awake, interactive, not in distress Neck : Normal inspection, Supple Cardiovascular : RRR, no JVP, no lower extremity edema Respiratory : good bilateral air entry, no significant crackles, wheezes or rhonchi Gastrointestinal: soft, lax, Normal bowel sounds, Non tender Skin : Warm, Dry, bruise around her right eye, multiple small bruises on her skin Neurological : Alert & oriented x3, No focal deficit DS: Data Data Completed and Pending Labs on day of discharge: Laboratory Results - last 24 hr 12/09/22 06:58 Sodium 138 Potassium 4.2 Chloride 104 Carbon Dioxide 23 Anion Gap 15 BUN 38 H Creatinine 2.43 H Estim Creat Clear Calc 12.2 Estimated GFR 19 Random Glucose 91 Calcium 9.3 D B-Natriuretic Peptide 409 H Preliminary micro results at discharge 12/05/22 15:13 Blood Culture - Preliminary Blood - Venous No growth after 48 hours. 12/05/22 15:13 Blood Culture - Preliminary Blood - Venous No growth after 48 hours. Discharge Plan Discharge Anticipated Discharge Date/Time: 12/09/22 14:30 Patient Disposition: Xfer SNF Discharge Diagnosis: hyopkalemia Referrals: Claribel Sommer [place] [Outside] - 1 Day (SHORT TERM REHAB) Miri Aldana MD [Primary Care Provider] - 1 Week Discharge Medications: Continued amlodipine 5 mg tablet 1 tab PO DAILY rosuvastatin 40 mg tablet 1 tab PO BEDTIME Eliquis 2.5 mg tablet 1 tab PO BID albuterol sulfate 90 mcg/actuation HFA aerosol inhaler 2 puff inhalation Q6H PRN (Reason: wheezing) Discontinued hydrochlorothiazide 25 mg tablet 1 tab PO DAILY Discharge Orders: Discharge Order (Routine); Ordered 12/09/22 Ordered By: Aditya Calderon Diet: Advance to usual diet Activity on Discharge: As tolerated Stand Alone Forms: Patient Portal Discharge page Care Plan Goals: recovery Health Concerns: hypokalemia, falls, niya Plan of Treatment: stop hctz, rehab, monitor bmp Assessment: see above
== END 2022-12-09 18:05 | disposition skilled nursing facility (03) | DRG 682 ==
LOC: HO.ED 09:58 → HO.EDOVER 13:57 → HO.IMC 12-06 00:42
PROVIDERS: Student in an Organized Health Care Education/Training Program; Admitting Provider Physician Assistant; Emergency Provider Emergency Medicine; PCP Internal Medicine; Visit Provider Internal Medicine
DX: N17.0 Acute kidney failure with tubular necrosis (principal); I50.31 Acute diastolic (congestive) heart failure; I13.0 Hypertensive heart and chronic kidney disease with heart failure and stage 1 through stage 4 chronic kidney disease, or unspecified chronic kidney disease; N39.0 Urinary tract infection, site not specified; N18.30 Chronic kidney disease, stage 3 unspecified; E87.6 Hypokalemia; J45.20 Mild intermittent asthma, uncomplicated; Z66 Do not resuscitate; F03.90 Unspecified dementia, unspecified severity, without behavioral disturbance, psychotic disturbance, mood disturbance, and anxiety; E86.0 Dehydration; R29.6 Repeated falls; I48.0 Paroxysmal atrial fibrillation; E78.5 Hyperlipidemia, unspecified; F17.210 Nicotine dependence, cigarettes, uncomplicated; Z20.822 Contact with and (suspected) exposure to COVID-19; Z71.6 Tobacco abuse counseling; Z79.01 Long term (current) use of anticoagulants; Z79.899 Other long term (current) drug therapy
CPT/HCPCS: 36415; 70450; 71045; 72125; 73070; 73502; 74176; 80048; 80053; 81001; 82550; 82570; 83735; 83880; 84300; 85025; 87040; 87086; 87502; 87635; 93005; 97116; 97162; 97530; 99285; J1940; J2543

== ENCOUNTER → 2022-12-05 13:34 | Outpatient (BNV) | payer MEDICARE, SELFPAY | PROVIDERS: Admitting Provider Physician Assistant; Emergency Provider Emergency Medicine; PCP Internal Medicine; Visit Provider Physician Assistant | DX: I50.9 Heart failure, unspecified (principal); R53.81 Other malaise; N17.9 Acute kidney failure, unspecified; E87.6 Hypokalemia; R29.6 Repeated falls | CPT/HCPCS: 99223; 99233; 99239 ==